=== PATIENT | male | born 1965 | race Caucasian/White ===

== ENCOUNTER → 2019-03-24 12:33 | Outpatient (BNVA) | payer BC, SELFPAY | PROVIDERS: Family Provider Internal Medicine; PCP Internal Medicine; Visit Provider Nurse Practitioner Psychiatric/Mental Health | DX: F33.1 Major depressive disorder, recurrent, moderate (principal); F41.0 Panic disorder [episodic paroxysmal anxiety]; M79.7 Fibromyalgia; F17.220 Nicotine dependence, chewing tobacco, uncomplicated | CPT/HCPCS: 99213 ==

== ENCOUNTER → 2019-05-19 14:34 | Outpatient (BNVA) | payer BC, SELFPAY | PROVIDERS: Family Provider Internal Medicine; PCP Internal Medicine; Visit Provider Nurse Practitioner Psychiatric/Mental Health | DX: F33.1 Major depressive disorder, recurrent, moderate (principal); F41.0 Panic disorder [episodic paroxysmal anxiety]; M79.7 Fibromyalgia; F17.220 Nicotine dependence, chewing tobacco, uncomplicated | CPT/HCPCS: 99213 ==

== ENCOUNTER → 2019-07-14 08:24 | Outpatient (BNVA) | payer MEDICARE, BC, SELFPAY | PROVIDERS: Family Provider Internal Medicine; PCP Internal Medicine; Visit Provider Nurse Practitioner Psychiatric/Mental Health | DX: F33.1 Major depressive disorder, recurrent, moderate (principal); F41.0 Panic disorder [episodic paroxysmal anxiety]; M79.7 Fibromyalgia; F17.220 Nicotine dependence, chewing tobacco, uncomplicated; F33.2 Major depressive disorder, recurrent severe without psychotic features | CPT/HCPCS: 99213 ==

== ENCOUNTER → 2019-08-07 07:33 | Outpatient (BNVA) | payer MEDICARE, BC, SELFPAY | PROVIDERS: Family Provider Internal Medicine; PCP Internal Medicine; Visit Provider Nurse Practitioner Psychiatric/Mental Health | DX: F33.1 Major depressive disorder, recurrent, moderate (principal); F41.0 Panic disorder [episodic paroxysmal anxiety]; M79.7 Fibromyalgia; F17.220 Nicotine dependence, chewing tobacco, uncomplicated; F33.2 Major depressive disorder, recurrent severe without psychotic features | CPT/HCPCS: 99213 ==

== ENCOUNTER → 2019-08-26 07:31 | Outpatient (BNVA) | payer MEDICARE, BC, SELFPAY | PROVIDERS: Family Provider Internal Medicine; PCP Internal Medicine; Visit Provider Nurse Practitioner Psychiatric/Mental Health | DX: F33.1 Major depressive disorder, recurrent, moderate (principal); F41.0 Panic disorder [episodic paroxysmal anxiety]; M79.7 Fibromyalgia; F17.220 Nicotine dependence, chewing tobacco, uncomplicated; F41.1 Generalized anxiety disorder | CPT/HCPCS: 80053; 80061; 83036; 83721; 85025; 99214 ==

== ENCOUNTER → 2019-09-09 07:41 | Outpatient (BNVA) | payer MEDICARE, BC, SELFPAY | PROVIDERS: Family Provider Internal Medicine; PCP Internal Medicine; Visit Provider Nurse Practitioner Psychiatric/Mental Health | DX: F33.1 Major depressive disorder, recurrent, moderate (principal); F41.0 Panic disorder [episodic paroxysmal anxiety]; M79.7 Fibromyalgia; F17.220 Nicotine dependence, chewing tobacco, uncomplicated | CPT/HCPCS: 99214 ==

== ENCOUNTER → 2019-10-07 15:07 | Outpatient (BNVA) | payer MEDICARE, BC, SELFPAY | PROVIDERS: Family Provider Internal Medicine; PCP Internal Medicine; Visit Provider Nurse Practitioner Psychiatric/Mental Health | DX: F33.1 Major depressive disorder, recurrent, moderate (principal); F41.0 Panic disorder [episodic paroxysmal anxiety]; M79.7 Fibromyalgia; F17.220 Nicotine dependence, chewing tobacco, uncomplicated | CPT/HCPCS: 99214 ==

== ENCOUNTER → 2019-11-06 08:15 | Outpatient (BNVA) | payer MEDICARE, BC, SELFPAY | PROVIDERS: Family Provider Internal Medicine; PCP Internal Medicine; Visit Provider Nurse Practitioner Psychiatric/Mental Health | DX: F33.1 Major depressive disorder, recurrent, moderate (principal); F41.0 Panic disorder [episodic paroxysmal anxiety]; M79.7 Fibromyalgia; F17.220 Nicotine dependence, chewing tobacco, uncomplicated | CPT/HCPCS: 99214 ==

== ENCOUNTER → 2019-12-04 13:00 | Outpatient (BNVA) | payer MEDICARE, BC, SELFPAY | PROVIDERS: Family Provider Internal Medicine; PCP Internal Medicine; Visit Provider Nurse Practitioner Psychiatric/Mental Health | DX: F33.1 Major depressive disorder, recurrent, moderate (principal); F41.0 Panic disorder [episodic paroxysmal anxiety]; M79.7 Fibromyalgia; F17.220 Nicotine dependence, chewing tobacco, uncomplicated | CPT/HCPCS: 99214 ==

== ENCOUNTER → 2019-12-31 08:09 | Outpatient (BNVA) | payer MEDICARE, BC, SELFPAY | PROVIDERS: Family Provider Internal Medicine; PCP Internal Medicine; Visit Provider Nurse Practitioner Psychiatric/Mental Health | DX: F33.1 Major depressive disorder, recurrent, moderate (principal); F41.0 Panic disorder [episodic paroxysmal anxiety]; M79.7 Fibromyalgia; F17.220 Nicotine dependence, chewing tobacco, uncomplicated | CPT/HCPCS: 99214 ==

== ENCOUNTER → 2020-01-13 08:36 | Outpatient (BNVA) | payer MEDICARE, BC, SELFPAY | PROVIDERS: Family Provider Internal Medicine; PCP Internal Medicine; Visit Provider Nurse Practitioner Psychiatric/Mental Health | DX: F33.1 Major depressive disorder, recurrent, moderate (principal); F41.0 Panic disorder [episodic paroxysmal anxiety]; M79.7 Fibromyalgia; F17.220 Nicotine dependence, chewing tobacco, uncomplicated | CPT/HCPCS: 99214 ==

== ENCOUNTER → 2020-02-10 07:36 | Outpatient (BNVA) | payer MEDICARE, BC, SELFPAY | PROVIDERS: Family Provider Internal Medicine; PCP Internal Medicine; Visit Provider Nurse Practitioner Psychiatric/Mental Health | DX: F33.1 Major depressive disorder, recurrent, moderate (principal); F41.0 Panic disorder [episodic paroxysmal anxiety]; M79.7 Fibromyalgia; F17.220 Nicotine dependence, chewing tobacco, uncomplicated; F33.2 Major depressive disorder, recurrent severe without psychotic features | CPT/HCPCS: 99213 ==

== ENCOUNTER → 2020-03-21 08:47 | Outpatient (BNVA) | payer MEDICARE, BC, SELFPAY | PROVIDERS: Family Provider Internal Medicine; PCP Internal Medicine; Visit Provider Nurse Practitioner Psychiatric/Mental Health | DX: F33.1 Major depressive disorder, recurrent, moderate (principal); F41.0 Panic disorder [episodic paroxysmal anxiety]; M79.7 Fibromyalgia; F17.220 Nicotine dependence, chewing tobacco, uncomplicated | CPT/HCPCS: 99213 ==

== ENCOUNTER → 2020-05-04 08:40 | Outpatient (BNVA) | payer MEDICARE, BC, SELFPAY | PROVIDERS: Family Provider Internal Medicine; PCP Internal Medicine; Visit Provider Nurse Practitioner Psychiatric/Mental Health | DX: F33.1 Major depressive disorder, recurrent, moderate (principal); F41.0 Panic disorder [episodic paroxysmal anxiety]; M79.7 Fibromyalgia; F17.220 Nicotine dependence, chewing tobacco, uncomplicated; F41.1 Generalized anxiety disorder | CPT/HCPCS: 99214 ==

== ENCOUNTER → 2020-05-30 11:35 | Outpatient (BNVA) | payer MEDICARE, BC, SELFPAY | PROVIDERS: Family Provider Internal Medicine; PCP Internal Medicine; Visit Provider Nurse Practitioner Psychiatric/Mental Health | DX: F33.1 Major depressive disorder, recurrent, moderate (principal); F41.0 Panic disorder [episodic paroxysmal anxiety]; M79.7 Fibromyalgia; F17.220 Nicotine dependence, chewing tobacco, uncomplicated | CPT/HCPCS: 99214 ==

== ENCOUNTER → 2020-07-11 09:51 | Outpatient (BNVA) | payer MEDICARE, BC, SELFPAY | PROVIDERS: Family Provider Internal Medicine; PCP Internal Medicine; Visit Provider Nurse Practitioner Psychiatric/Mental Health | DX: F33.1 Major depressive disorder, recurrent, moderate (principal); F41.0 Panic disorder [episodic paroxysmal anxiety]; M79.7 Fibromyalgia; F17.220 Nicotine dependence, chewing tobacco, uncomplicated | CPT/HCPCS: 99214 ==

== ENCOUNTER → 2020-08-22 10:32 | Outpatient (BNVA) | payer MEDICARE, BC, SELFPAY | PROVIDERS: Family Provider Internal Medicine; PCP Internal Medicine; Visit Provider Nurse Practitioner Psychiatric/Mental Health | DX: F33.1 Major depressive disorder, recurrent, moderate (principal); F41.0 Panic disorder [episodic paroxysmal anxiety]; M79.7 Fibromyalgia; F17.220 Nicotine dependence, chewing tobacco, uncomplicated | CPT/HCPCS: 99214 ==

== ENCOUNTER → 2020-10-17 09:40 | Outpatient (BNVA) | payer MEDICARE, BC, SELFPAY | PROVIDERS: Family Provider Internal Medicine; PCP Internal Medicine; Visit Provider Nurse Practitioner Psychiatric/Mental Health | DX: F33.1 Major depressive disorder, recurrent, moderate (principal); F41.0 Panic disorder [episodic paroxysmal anxiety]; F17.220 Nicotine dependence, chewing tobacco, uncomplicated; M79.7 Fibromyalgia | CPT/HCPCS: 99214 ==

== ENCOUNTER → 2020-11-28 08:49 | Outpatient (BNVA) | payer MEDICARE, BC, SELFPAY | PROVIDERS: Family Provider Internal Medicine; PCP Internal Medicine; Visit Provider Nurse Practitioner Psychiatric/Mental Health | DX: F33.1 Major depressive disorder, recurrent, moderate (principal); F41.0 Panic disorder [episodic paroxysmal anxiety]; F17.220 Nicotine dependence, chewing tobacco, uncomplicated; M79.7 Fibromyalgia | CPT/HCPCS: 99214 ==

== ENCOUNTER → 2020-12-08 13:39 | Outpatient (BNVA) | payer MEDICARE, BC, SELFPAY | PROVIDERS: Family Provider Internal Medicine; PCP Internal Medicine; Visit Provider Nurse Practitioner Psychiatric/Mental Health | DX: F41.0 Panic disorder [episodic paroxysmal anxiety]; M79.7 Fibromyalgia; F17.220 Nicotine dependence, chewing tobacco, uncomplicated; F33.1 Major depressive disorder, recurrent, moderate | CPT/HCPCS: 99214 ==

== ENCOUNTER → 2020-12-15 12:23 | Outpatient (BNVA) | payer MEDICARE, BC, SELFPAY | PROVIDERS: Family Provider Internal Medicine; PCP Internal Medicine; Visit Provider Nurse Practitioner Psychiatric/Mental Health | DX: F33.1 Major depressive disorder, recurrent, moderate (principal); F41.0 Panic disorder [episodic paroxysmal anxiety]; M79.7 Fibromyalgia; F17.220 Nicotine dependence, chewing tobacco, uncomplicated | CPT/HCPCS: 99214 ==

== ENCOUNTER → 2020-12-27 09:50 | Outpatient (BNVA) | payer MEDICARE, BC, SELFPAY | PROVIDERS: Family Provider Internal Medicine; PCP Internal Medicine; Visit Provider Nurse Practitioner Psychiatric/Mental Health | DX: F33.1 Major depressive disorder, recurrent, moderate (principal); F41.0 Panic disorder [episodic paroxysmal anxiety]; M79.7 Fibromyalgia; F17.220 Nicotine dependence, chewing tobacco, uncomplicated | CPT/HCPCS: 99214 ==

== ENCOUNTER → 2021-01-10 09:41 | Outpatient (BNVA) | payer MEDICARE, BC, SELFPAY | PROVIDERS: Family Provider Internal Medicine; PCP Internal Medicine; Visit Provider Nurse Practitioner Psychiatric/Mental Health | DX: F33.1 Major depressive disorder, recurrent, moderate (principal); F41.0 Panic disorder [episodic paroxysmal anxiety]; F17.220 Nicotine dependence, chewing tobacco, uncomplicated; M79.7 Fibromyalgia | CPT/HCPCS: 99214 ==

== ENCOUNTER → 2021-02-07 08:47 | Outpatient (BNVA) | payer MEDICARE, BC, SELFPAY | PROVIDERS: Family Provider Internal Medicine; PCP Internal Medicine; Visit Provider Nurse Practitioner Psychiatric/Mental Health | DX: F33.1 Major depressive disorder, recurrent, moderate (principal); F41.0 Panic disorder [episodic paroxysmal anxiety]; M79.7 Fibromyalgia; F17.220 Nicotine dependence, chewing tobacco, uncomplicated | CPT/HCPCS: 99214 ==

== ENCOUNTER → 2021-04-04 07:24 | Outpatient (BNVA) | payer MEDICARE, BC, SELFPAY | PROVIDERS: Family Provider Internal Medicine; PCP Internal Medicine; Visit Provider Nurse Practitioner Psychiatric/Mental Health | DX: F33.1 Major depressive disorder, recurrent, moderate (principal); F41.0 Panic disorder [episodic paroxysmal anxiety]; F17.220 Nicotine dependence, chewing tobacco, uncomplicated; M79.7 Fibromyalgia | CPT/HCPCS: 99214 ==

== ENCOUNTER → 2021-05-02 10:04 | Outpatient (BNVA) | payer MEDICARE, BC, SELFPAY | PROVIDERS: Family Provider Internal Medicine; PCP Internal Medicine; Visit Provider Nurse Practitioner Psychiatric/Mental Health | DX: F33.1 Major depressive disorder, recurrent, moderate (principal); F41.0 Panic disorder [episodic paroxysmal anxiety]; M79.7 Fibromyalgia; F17.220 Nicotine dependence, chewing tobacco, uncomplicated | CPT/HCPCS: 99214 ==

== ENCOUNTER → 2021-06-14 08:40 | Outpatient (BNVA) | payer MEDICARE, BC, SELFPAY | PROVIDERS: Family Provider Internal Medicine; PCP Internal Medicine; Visit Provider Nurse Practitioner Psychiatric/Mental Health | DX: F33.1 Major depressive disorder, recurrent, moderate (principal); F41.0 Panic disorder [episodic paroxysmal anxiety]; F17.220 Nicotine dependence, chewing tobacco, uncomplicated; M79.7 Fibromyalgia | CPT/HCPCS: 99214 ==

== ENCOUNTER → 2021-08-02 09:08 | Outpatient (BNVA) | payer MEDICARE, BC, SELFPAY | PROVIDERS: Family Provider Internal Medicine; PCP Internal Medicine; Visit Provider Nurse Practitioner Psychiatric/Mental Health | DX: F33.1 Major depressive disorder, recurrent, moderate (principal); F41.0 Panic disorder [episodic paroxysmal anxiety]; M79.7 Fibromyalgia; F17.220 Nicotine dependence, chewing tobacco, uncomplicated | CPT/HCPCS: 99214 ==

== ENCOUNTER → 2021-08-30 13:31 | Outpatient (BNVA) | payer MEDICARE, BC, SELFPAY | PROVIDERS: Family Provider Internal Medicine; PCP Internal Medicine; Referring Provider Family Medicine; Visit Provider Internal Medicine | DX: E11.42 Type 2 diabetes mellitus with diabetic polyneuropathy (principal); E11.59 Type 2 diabetes mellitus with other circulatory complications; E78.2 Mixed hyperlipidemia; I25.10 Atherosclerotic heart disease of native coronary artery without angina pectoris; R80.9 Proteinuria, unspecified; Z87.19 Personal history of other diseases of the digestive system; Z79.84 Long term (current) use of oral hypoglycemic drugs; Z79.4 Long term (current) use of insulin | CPT/HCPCS: 99204 ==

== ENCOUNTER → 2021-10-26 08:19 | Outpatient (BNVA) | payer MEDICARE, BC, SELFPAY | PROVIDERS: Family Provider Internal Medicine; PCP Internal Medicine; Visit Provider Internal Medicine | DX: E11.42 Type 2 diabetes mellitus with diabetic polyneuropathy (principal) | CPT/HCPCS: 80053; 80061; 83036; 83721 ==

== ENCOUNTER → 2021-11-27 10:40 | Outpatient (BNVA) | payer MEDICARE, BC, SELFPAY | PROVIDERS: Family Provider Internal Medicine; PCP Family Medicine; Visit Provider Internal Medicine | DX: E11.42 Type 2 diabetes mellitus with diabetic polyneuropathy (principal); E11.59 Type 2 diabetes mellitus with other circulatory complications; E78.2 Mixed hyperlipidemia; I25.10 Atherosclerotic heart disease of native coronary artery without angina pectoris; R80.9 Proteinuria, unspecified; Z79.84 Long term (current) use of oral hypoglycemic drugs; Z79.4 Long term (current) use of insulin | CPT/HCPCS: 99214 ==

== ENCOUNTER → 2021-12-20 10:42 | Outpatient (BNVA) | payer MEDICARE, SELFPAY | PROVIDERS: Family Provider Internal Medicine; PCP Nurse Practitioner Family; Visit Provider Nurse Practitioner Family | DX: E11.42 Type 2 diabetes mellitus with diabetic polyneuropathy (principal); K85.90 Acute pancreatitis without necrosis or infection, unspecified; K86.1 Other chronic pancreatitis; H83.3X9 Noise effects on inner ear, unspecified ear; M54.9 Dorsalgia, unspecified; G89.29 Other chronic pain; E11.9 Type 2 diabetes mellitus without complications; E78.2 Mixed hyperlipidemia; F41.0 Panic disorder [episodic paroxysmal anxiety]; F33.1 Major depressive disorder, recurrent, moderate | CPT/HCPCS: 80053; 82150; 83036; 83690 ==

== ENCOUNTER → 2022-01-15 09:19 | Outpatient (BNVA) | payer MEDICARE, BC, SELFPAY | PROVIDERS: Family Provider Internal Medicine; PCP Nurse Practitioner Family; Visit Provider Nurse Practitioner Family | DX: N40.0 Benign prostatic hyperplasia without lower urinary tract symptoms (principal); N48.1 Balanitis; N52.9 Male erectile dysfunction, unspecified | CPT/HCPCS: 36415; 51741; 51798; 84153; 99203 ==

== ENCOUNTER → 2022-01-18 07:33 | Outpatient (BNVA) | payer MEDICARE, BC, SELFPAY | PROVIDERS: Family Provider Internal Medicine; PCP Nurse Practitioner Family; Visit Provider Nurse Practitioner Family | DX: N40.0 Benign prostatic hyperplasia without lower urinary tract symptoms (principal); N48.1 Balanitis; N52.9 Male erectile dysfunction, unspecified | CPT/HCPCS: 81003 ==

== ENCOUNTER → 2022-01-29 08:19 | Outpatient (BNVA) | payer MEDICARE, BC, SELFPAY | PROVIDERS: Family Provider Internal Medicine; PCP Nurse Practitioner Family; Visit Provider Nurse Practitioner Family | DX: E11.42 Type 2 diabetes mellitus with diabetic polyneuropathy (principal); E78.2 Mixed hyperlipidemia; E11.59 Type 2 diabetes mellitus with other circulatory complications; I25.10 Atherosclerotic heart disease of native coronary artery without angina pectoris; M79.7 Fibromyalgia | CPT/HCPCS: 80053; 80061; 83036; 83721 ==

== ENCOUNTER → 2022-02-28 10:56 | Outpatient (BNVA) | payer MEDICARE, BC, SELFPAY | PROVIDERS: Family Provider Internal Medicine; PCP Nurse Practitioner Family; Visit Provider Internal Medicine | DX: E11.59 Type 2 diabetes mellitus with other circulatory complications (principal); E11.42 Type 2 diabetes mellitus with diabetic polyneuropathy; I25.10 Atherosclerotic heart disease of native coronary artery without angina pectoris; E78.1 Pure hyperglyceridemia; E78.2 Mixed hyperlipidemia; R60.9 Edema, unspecified; R80.9 Proteinuria, unspecified; Z79.84 Long term (current) use of oral hypoglycemic drugs; Z79.4 Long term (current) use of insulin | CPT/HCPCS: 99215 ==

== ENCOUNTER 2022-03-19 16:20 | Outpatient (CLI) | payer MEDICARE, SELFPAY ==
[2022-03-19 16:53] LABS: Basophils % 0.3 %; Eosinophils # 0.1 10^3/uL (0.0-0.8); Eosinophils % 1.2 %; Hematocrit 42.3 % (42.0-52.0); Lymphocytes # 2.8 10^3/uL (0.8-4.8); Lymphocytes % 27.3 %; Mean Corpuscular HGB Conc 33.1 g/dL (30.0-36.0); Mean Corpuscular Hemoglobin 28.5 pg (28.0-34.0); Mean Platelet Volume 10.8 fL (7.4-10.4); Monocytes # 0.8 10^3/uL (0.2-0.9); Monocytes % 7.3 %; Neutrophils # 6.63 10^3/uL (1.8-7.7); Neutrophils % 63.6 %; Nucleated Red Blood Cells % 0 %; Platelet Count 261 10^3/cmm (130-400); Red Blood Count 4.92 10^6/uL (4.1-5.3); Red Cell Distribution Width 15.2 % (12.1-15.1); White Blood Count 10.4 10^3/uL (4.0-10.0)
[2022-03-19 18:00] LABS: Alanine Aminotransferase 32 U/L (0-41); Albumin Level 4.2 g/dL (3.5-5.2); Alkaline Phosphatase 93 U/L (40-130); Anion Gap 15.9 (5-19); Aspartate Amino Transferase 20 U/L (0-40); Blood Urea Nitrogen 18 mg/dL (6-20); Calcium 9.9 mg/dL (8.5-10.5); Carbon Dioxide 24 mmol/L (22-29); Chloride 99 mmol/L (98-107); Globulin 3.2 g/dL (1.3-4.6); Glomerular Filtration Rate 77.6 mL/min (90-130); Glucose 238 mg/dL (65-115); Osmolality Calculated 290 mOsm/kg (285-295); Potassium 3.9 mmol/L (3.5-5.1); Sodium 135 mmol/L (136-145); Total Bilirubin 0.3 mg/dL (0.15-1.2); Total Protein 7.4 g/dL (6.6-8.7)
[2022-03-19 19:30] LABS: HIV 1 & 2 Antibody Non-Reactive (Non-Reactiv); HIV 1 & 2 Antigen Non-Reactive (Non-Reactiv)
[2022-03-19 22:05] LABS: Hepatitis A Antibody IgM Non-Reactive (Nonreactive); Hepatitis B Core AB, Total Non-Reactive (Nonreactive); Hepatitis B Surface AB 3.5 (11.5-1000); Hepatitis B Surface Antigen Non-Reactive (Nonreactive); Hepatitis C Virus Antibody Non-Reactive (Nonreactive)
[2022-03-21 12:02] LABS: Quantiferon Mitogen >10.00 IU/mL; Quantiferon Nil 0.02 IU/mL; Quantiferon Plus TB1 0.01 IU/mL; Quantiferon Plus TB2 0.01 IU/mL; Quantiferon TB Gold NEGATIVE (NEGATIVE)
== END 2022-03-19 16:21 | disposition home or self-care (01) ==
LOC: LAB 16:24
PROVIDERS: PCP Nurse Practitioner Family; Referring Provider Internal Medicine; Visit Provider Nurse Practitioner Family
DX: Z79.899 Other long term (current) drug therapy (principal)
CPT/HCPCS: 80053; 85025; 86480; 86705; 86706; 86709; 86803; 87340; 87806

== ENCOUNTER → 2022-03-22 14:58 | Outpatient (BNVA) | payer MEDICARE, SELFPAY | PROVIDERS: PCP Nurse Practitioner Family; Visit Provider Urology | DX: N40.0 Benign prostatic hyperplasia without lower urinary tract symptoms (principal); N52.9 Male erectile dysfunction, unspecified; N48.1 Balanitis | CPT/HCPCS: 81003; 99214 ==

== ENCOUNTER 2022-04-18 06:08 | Outpatient (CLI) | payer MEDICARE, SELFPAY ==
--- NOTE | 2022-04-18 06:15 | USCV_ITS ---
Noble Dumont Age: 57 Gender: M : 1965 Exam Date: 04/18/2022 06:20 Ordering Phys: Gilma Pedraza MD Technologist: KOFFI [place] [facility] [place]ication: ASSESS FOR HEART FAILURE, HISTORY OF CABG BP: 139 / 84 HR: 72 Rhythm: Sinus Technical Quality: Poor because of body habitus, Technically difficult study MEASUREMENTS (Male / Female) Normal Values 2D ECHO LVOT Diameter 2.0 cm LV Ejection Fraction MOD 2C 52.7 % LV Ejection Fraction 2C AL 57.0 % LA Diameter 3.8 cm LA Width 2.9 cm LA Height 5.5 cm RA Width 3.7 cm RA Height 4.8 cm Aorta at Sinotubular Diameter 2.9 cm IVC Diameter 2.1 cm M-MODE Aortic Annulus Diameter 3.5 cm LA Ao Ratio MM 1.1 MV E Point Septal Separation 0.5 cm DOPPLER Right Atrial Pressure 3.0 mmHg FINDINGS Left Ventricle Normal left ventricular cavity size. Grossly normal left ventricular systolic function. Left ventricular ejection fraction is estimated at 55 %. Although no diagnostic regional wall motion abnormality could be identified, this possibility cannot be completely excluded. Right Ventricle Right ventricle not well visualized. Right Atrium Mildly increased right atrial size. Left Atrium Normal left atrial size. Mitral Valve Structurally normal mitral valve. Aortic Valve Probably trileaflet aortic valve. Tricuspid Valve Structurally normal tricuspid valve. Trace tricuspid valve regurgitation. Pulmonic Valve Pulmonic valve not well visualized. Pericardium No pericardial effusion. Aorta Normal sized aortic root. IVC Normal IVC dimension with >50% respiratory change of the inferior vena cava. CONCLUSIONS 1. This is a technically difficult study. 2. Normal left ventricular cavity size. Grossly normal left ventricular systolic function. Left ventricular ejection fraction is estimated at 55 %. Although no diagnostic regional wall motion abnormality could be identified, this possibility cannot be completely excluded. 3. Repeat study with echo contrast is recommended. Wanda Staples MD (Electronically Signed) Final Date: 24 April 2022 06:19 S
== END 2022-04-18 06:09 | disposition home or self-care (01) ==
LOC: RAD 06:10
PROVIDERS: PCP Nurse Practitioner Family; Visit Provider Internal Medicine
DX: E11.59 Type 2 diabetes mellitus with other circulatory complications (principal); I25.10 Atherosclerotic heart disease of native coronary artery without angina pectoris; R60.9 Edema, unspecified
CPT/HCPCS: 93308

== ENCOUNTER → 2022-05-11 07:15 | Outpatient (BNVA) | payer MEDICARE, SELFPAY | PROVIDERS: PCP Nurse Practitioner Family; Visit Provider Internal Medicine | DX: E11.319 Type 2 diabetes mellitus with unspecified diabetic retinopathy without macular edema (principal); E11.59 Type 2 diabetes mellitus with other circulatory complications; E11.42 Type 2 diabetes mellitus with diabetic polyneuropathy; I25.10 Atherosclerotic heart disease of native coronary artery without angina pectoris; R60.9 Edema, unspecified; Z79.4 Long term (current) use of insulin; Z79.84 Long term (current) use of oral hypoglycemic drugs | CPT/HCPCS: 36415; 80053; 80061; 82044; 83036; 83721; 99214 ==

== ENCOUNTER → 2022-10-16 08:46 | Outpatient (BNVA) | payer MEDICARE, SELFPAY | PROVIDERS: PCP Nurse Practitioner Family; Referring Provider Internal Medicine; Visit Provider Internal Medicine | DX: M79.7 Fibromyalgia (principal); R10.9 Unspecified abdominal pain; E11.42 Type 2 diabetes mellitus with diabetic polyneuropathy; E11.59 Type 2 diabetes mellitus with other circulatory complications; E11.9 Type 2 diabetes mellitus without complications; E78.1 Pure hyperglyceridemia; I25.10 Atherosclerotic heart disease of native coronary artery without angina pectoris; R60.9 Edema, unspecified; R80.9 Proteinuria, unspecified; W57.XXXA Bitten or stung by nonvenomous insect and other nonvenomous arthropods, initial encounter | CPT/HCPCS: 80053; 80061; 82043; 82306; 82607; 83036; 83690; 83721; 83735; 84443; 85025; 86618; 86666; 86757 ==

== ENCOUNTER 2022-11-02 06:59 | Outpatient (CLI) | payer MEDICARE, SELFPAY ==
[2022-11-02] MEDS: iohexol 350 mg/mL 500 mL Btl (per mL) IV (07:57)
[2022-11-02] MEDS: iohexol 350 mg/mL 500 mL Btl (per mL) PO (07:57)
--- NOTE | 2022-11-02 08:30 | CT_ITS ---
WS: [id number] CT ABDOMEN PELVIS TECHNIQUE: Contrast-enhanced CT of the abdomen and pelvis with coronal and sagittal reformatted image s. CLINICAL INFORMATION: R10.32 - Left lower quadrant pain COMPARISON: 2019 DLP: 927.[address] scans at [facility] use at least one of these dose optimization techniques: automated e xposure control; mA and/or kV adjustment per patient size (includes targeted exams where dose is matc hed to clinical indication); or iterative reconstruction. FINDINGS: Lung bases are well aerated. Hepatomegaly. Diffuse fatty infiltration liver. Cholecystectomy clips. N ormal spleen. Normal GE junction. Normal portal vein and splenic vein. Normal spleen. Pancreas appears normal. Celiac and SMA are patent. LEFT adrenal adenoma measuring 2.5 cm is unchange d. Normal RIGHT adrenal gland. No hydronephrosis in either kidney. Bilateral renal cysts the largest on the LEFT lower pole measuring 2.7 cm. Normal caliber abdominal aorta. A few sigmoid diverticuli. No evidence of acute diverticulitis. Normal appendix in the RIGHT lower qu adrant. Disc osteophyte protrusion L4-5 with moderate central canal stenosis unchanged. IMPRESSION: 1. A few sigmoid diverticuli. No evidence of acute diverticulitis. 2. Hepatomegaly diffuse fatty filtration. 3. Prior cholecystectomy. 4. Stable LEFT adrenal adenoma. 5. A few incidental renal cysts described above. 6. Disc osteophyte protrusion L4-5 with moderate central canal stenosis unchanged. 7. No other acute findings.
== END 2022-11-02 07:00 | disposition home or self-care (01) ==
LOC: RAD 07:00
PROVIDERS: PCP Nurse Practitioner Family; Visit Provider Nurse Practitioner Family
DX: R10.32 Left lower quadrant pain (principal); K57.30 Diverticulosis of large intestine without perforation or abscess without bleeding; K76.0 Fatty (change of) liver, not elsewhere classified; Z90.49 Acquired absence of other specified parts of digestive tract; N28.1 Cyst of kidney, acquired; M51.26 Other intervertebral disc displacement, lumbar region
CPT/HCPCS: 74177; Q9967

== ENCOUNTER → 2022-11-08 07:36 | Outpatient (BNVA) | payer MEDICARE, SELFPAY | PROVIDERS: PCP Nurse Practitioner Family; Visit Provider Internal Medicine | DX: E11.59 Type 2 diabetes mellitus with other circulatory complications; I25.10 Atherosclerotic heart disease of native coronary artery without angina pectoris; R60.9 Edema, unspecified; E11.42 Type 2 diabetes mellitus with diabetic polyneuropathy; R80.9 Proteinuria, unspecified; E78.1 Pure hyperglyceridemia; K21.9 Gastro-esophageal reflux disease without esophagitis; R10.9 Unspecified abdominal pain; R53.83 Other fatigue; E27.8 Other specified disorders of adrenal gland; N52.9 Male erectile dysfunction, unspecified; Z79.4 Long term (current) use of insulin; Z79.84 Long term (current) use of oral hypoglycemic drugs | CPT/HCPCS: 99215 ==

== ENCOUNTER → 2023-01-16 12:27 | Outpatient (BNVA) | payer MEDICARE, SELFPAY | PROVIDERS: PCP Nurse Practitioner Family; Visit Provider Family Medicine | DX: E11.42 Type 2 diabetes mellitus with diabetic polyneuropathy (principal); E11.59 Type 2 diabetes mellitus with other circulatory complications; E78.1 Pure hyperglyceridemia; I25.10 Atherosclerotic heart disease of native coronary artery without angina pectoris; K21.9 Gastro-esophageal reflux disease without esophagitis; R10.9 Unspecified abdominal pain; R53.83 Other fatigue; R60.9 Edema, unspecified; R80.9 Proteinuria, unspecified | CPT/HCPCS: 80053; 80061; 82043; 82088; 83036; 84403 ==

== ENCOUNTER → 2023-01-18 11:58 | Outpatient (BNVA) | payer MEDICARE, SELFPAY | PROVIDERS: PCP Nurse Practitioner Family; Visit Provider Family Medicine | DX: E11.42 Type 2 diabetes mellitus with diabetic polyneuropathy (principal); E11.59 Type 2 diabetes mellitus with other circulatory complications; E78.1 Pure hyperglyceridemia; I25.10 Atherosclerotic heart disease of native coronary artery without angina pectoris; K21.9 Gastro-esophageal reflux disease without esophagitis; R10.9 Unspecified abdominal pain; R53.83 Other fatigue; R60.9 Edema, unspecified; R80.9 Proteinuria, unspecified | CPT/HCPCS: 82384; 82530; 82570 ==

== ENCOUNTER → 2023-05-17 11:15 | Outpatient (BNVA) | payer MEDICARE, SELFPAY | PROVIDERS: PCP Nurse Practitioner Family; Visit Provider Nurse Practitioner Family | DX: E11.42 Type 2 diabetes mellitus with diabetic polyneuropathy (principal); E55.9 Vitamin D deficiency, unspecified; Z79.899 Other long term (current) drug therapy | CPT/HCPCS: 80053; 80061; 81000; 82043; 82306; 82607; 83036; 83721; 84439; 84443; 85025 ==

== ENCOUNTER → 2023-07-03 16:19 | Outpatient (BNVA) | payer MEDICARE, SELFPAY | PROVIDERS: PCP Nurse Practitioner Family; Visit Provider Nurse Practitioner Family | DX: E11.42 Type 2 diabetes mellitus with diabetic polyneuropathy (principal); E11.9 Type 2 diabetes mellitus without complications; R10.31 Right lower quadrant pain; I10 Essential (primary) hypertension | CPT/HCPCS: 83721 ==

== ENCOUNTER 2023-07-11 14:49 | Outpatient (CLI) | payer MEDICARE, SELFPAY ==
--- NOTE | 2023-07-11 15:30 | USR_ITS ---
PROCEDURE INFORMATION: Exam: US Right Non-Vascular Joint or Other Extremity Structure Exam date and time: 07/11/2023 3:01 PM Age: 58 years old Clinical indication: Mass or lump; Other: Right inguinal; Additional info: R10.31 - right lower quadrant pain TECHNIQUE: Imaging protocol: Right US joint or other nonvascular extremity structure or structures. Real-time ultrasound with image documentation. Limited study. Exam focused on the lower extremity in the region of clinical interest. COMPARISON: CT abdomen pelvis w con* [id number] 11/02/2022 8:42 AM FINDINGS: Soft tissues: Examination of the right inguinal region demonstrates prominent subcutaneous fat. No soft tissue mass or fluid collection noted. No obvious hernia. US/US soft tissue/extremity [id number] IMPRESSION: Prominent subcutaneous fat
== END 2023-07-11 14:50 | disposition home or self-care (01) ==
LOC: RAD 14:49
PROVIDERS: PCP Nurse Practitioner Family; Visit Provider Nurse Practitioner Family
DX: R10.31 Right lower quadrant pain (principal)
CPT/HCPCS: 76882; 80053; 80061; 83036; 83880; 85025

== ENCOUNTER → 2023-10-21 09:10 | Outpatient (BNVA) | payer MEDICARE, SELFPAY | PROVIDERS: PCP Nurse Practitioner Family; Visit Provider Nurse Practitioner Family | DX: E11.9 Type 2 diabetes mellitus without complications (principal) | CPT/HCPCS: 80053; 80061; 83036; 85025 ==

== ENCOUNTER → 2023-11-26 10:11 | Outpatient (BNVA) | payer MEDICARE, SELFPAY | PROVIDERS: PCP Nurse Practitioner Family; Visit Provider Nurse Practitioner Family | DX: N39.0 Urinary tract infection, site not specified (principal) | CPT/HCPCS: 81000 ==

== ENCOUNTER → 2023-12-03 10:36 | Outpatient (BNVA) | payer MEDICARE, SELFPAY | PROVIDERS: PCP Nurse Practitioner Family; Visit Provider Nurse Practitioner Family | DX: R10.32 Left lower quadrant pain (principal) | CPT/HCPCS: 80053; 81000; 82150; 83690; 85025 ==

== ENCOUNTER → 2024-03-24 08:48 | Outpatient (BNVA) | payer MEDICARE, SELFPAY | PROVIDERS: PCP Nurse Practitioner Family; Visit Provider Nurse Practitioner Family | DX: E11.42 Type 2 diabetes mellitus with diabetic polyneuropathy (principal); M79.7 Fibromyalgia | CPT/HCPCS: 80053; 80061; 82306; 83036; 83721; 85025 ==

== ENCOUNTER → 2024-04-23 09:20 | Outpatient (BNVA) | payer MEDICARE, SELFPAY | PROVIDERS: Family Provider Nurse Practitioner Family; PCP Nurse Practitioner Family; Visit Provider Nurse Practitioner Family | DX: E87.6 Hypokalemia (principal) | CPT/HCPCS: 80048 ==

== ENCOUNTER → 2024-06-01 10:12 | Outpatient (BNVA) | payer MEDICARE, SELFPAY | PROVIDERS: Family Provider Nurse Practitioner Family; PCP Nurse Practitioner Family; Visit Provider Nurse Practitioner Family | DX: J44.1 Chronic obstructive pulmonary disease with (acute) exacerbation (principal) | CPT/HCPCS: 71046; 80053; 85025 ==

== ENCOUNTER 2024-07-16 07:50 | Outpatient (CLI) | payer MEDICARE, SELFPAY ==
[2024-07-16 08:58] LABS: Estmated Average Glucose 223; Hemoglobin A1C 9.4 % (4.0-6.0)
[2024-07-16 08:59] LABS: Alanine Aminotransferase 24 U/L (0-41); Albumin Level 4.2 g/dL (3.5-5.2); Alkaline Phosphatase 122 U/L (40-130); Anion Gap 18.8 (5-19); Aspartate Amino Transferase 14 U/L (0-40); Blood Urea Nitrogen 12 mg/dL (6-20); Calcium 9.7 mg/dL (8.5-10.5); Carbon Dioxide 28 mmol/L (22-29); Chloride 94 mmol/L (98-107); Chol HDL Ratio 9.48 mg/dL (1.0-5.00); Cholesterol 237 mg/dL (0-200); Globulin 3.6 g/dL (1.3-4.6); Glomerular Filtration Rate 99.6 mL/min (90-130); Glucose 420 mg/dL (65-115); HDL Cholesterol 25 mg/dL (60-100); Osmolality Calculated 302 mOsm/kg (285-295); Potassium 3.8 mmol/L (3.5-5.1); Sodium 137 mmol/L (136-145); Total Bilirubin 0.3 mg/dL (0.15-1.2); Total Protein 7.8 g/dL (6.6-8.7)
[2024-07-16 09:05] LABS: Testosterone Total 287.1 ng/dL (193-740)
[2024-07-16 09:18] LABS: Triglycerides 1425 mg/dL (0-150)
[2024-07-16 09:32] LABS: 25 Hydroxy Vitamin D 28 ng/mL (30-100)
[2024-07-16 10:01] LABS: LDL Cholesterol Direct 60 mg/dL (0-100)
== END 2024-07-16 07:51 | disposition home or self-care (01) ==
PROVIDERS: PCP Nurse Practitioner Family; Visit Provider Internal Medicine
DX: M79.7 Fibromyalgia (principal); E11.42 Type 2 diabetes mellitus with diabetic polyneuropathy; E11.9 Type 2 diabetes mellitus without complications; E55.9 Vitamin D deficiency, unspecified; E78.2 Mixed hyperlipidemia; E11.59 Type 2 diabetes mellitus with other circulatory complications; I25.10 Atherosclerotic heart disease of native coronary artery without angina pectoris
CPT/HCPCS: 36415; 80053; 80061; 82088; 82306; 83036; 83721; 84244; 84403

== ENCOUNTER → 2024-07-30 06:58 | Outpatient (BNVA) | payer MEDICARE, SELFPAY | PROVIDERS: Family Provider Nurse Practitioner Family; PCP Nurse Practitioner Family; Visit Provider Internal Medicine | DX: E11.59 Type 2 diabetes mellitus with other circulatory complications (principal); E11.9 Type 2 diabetes mellitus without complications; E78.1 Pure hyperglyceridemia; E27.8 Other specified disorders of adrenal gland; N52.9 Male erectile dysfunction, unspecified | CPT/HCPCS: 99214 ==

== ENCOUNTER → 2024-10-12 09:44 | Outpatient (BNVA) | payer MEDICARE, SELFPAY | PROVIDERS: Family Provider Nurse Practitioner Family; PCP Nurse Practitioner Family; Visit Provider Nurse Practitioner Family | DX: E11.9 Type 2 diabetes mellitus without complications (principal); E55.9 Vitamin D deficiency, unspecified; E11.42 Type 2 diabetes mellitus with diabetic polyneuropathy; E78.2 Mixed hyperlipidemia; E11.59 Type 2 diabetes mellitus with other circulatory complications; I25.10 Atherosclerotic heart disease of native coronary artery without angina pectoris | CPT/HCPCS: 82043; 85025 ==

== ENCOUNTER → 2024-10-13 07:18 | Outpatient (BNVA) | payer MEDICARE, SELFPAY | PROVIDERS: Family Provider Nurse Practitioner Family; PCP Nurse Practitioner Family; Visit Provider Internal Medicine | DX: E11.59 Type 2 diabetes mellitus with other circulatory complications (principal); E27.8 Other specified disorders of adrenal gland; I25.10 Atherosclerotic heart disease of native coronary artery without angina pectoris; R80.9 Proteinuria, unspecified; E78.1 Pure hyperglyceridemia; E27.9 Disorder of adrenal gland, unspecified; N52.9 Male erectile dysfunction, unspecified | CPT/HCPCS: 99214 ==

== ENCOUNTER → 2024-10-19 11:04 | Outpatient (BNVA) | payer MEDICARE, SELFPAY | PROVIDERS: Family Provider Nurse Practitioner Family; PCP Nurse Practitioner Family; Visit Provider Nurse Practitioner Family | DX: E11.9 Type 2 diabetes mellitus without complications (principal) | CPT/HCPCS: 85025 ==

== ENCOUNTER → 2024-10-20 07:00 | Outpatient (BNVA) | payer MEDICARE, SELFPAY | PROVIDERS: Family Provider Nurse Practitioner Family; PCP Nurse Practitioner Family; Visit Provider Podiatrist Foot & Ankle Surgery | DX: E11.42 Type 2 diabetes mellitus with diabetic polyneuropathy (principal); G57.52 Tarsal tunnel syndrome, left lower limb; Z79.4 Long term (current) use of insulin; Z79.84 Long term (current) use of oral hypoglycemic drugs | CPT/HCPCS: 99203 ==

== ENCOUNTER → 2024-11-17 07:57 | Outpatient (BNVA) | payer MEDICARE, SELFPAY | PROVIDERS: Family Provider Nurse Practitioner Family; PCP Nurse Practitioner Family; Visit Provider Podiatrist Foot & Ankle Surgery | DX: E11.9 Type 2 diabetes mellitus without complications (principal); M79.89 Other specified soft tissue disorders | CPT/HCPCS: 36415; 83036; 99213 ==

== ENCOUNTER 2025-02-15 12:36 | Emergency (ER) | payer MEDICARE, SELFPAY ==
--- OUTSIDE RECORDS SUMMARY | 2024-01-04 03:00 | XMS_ITS ---
Author Organization [facility] Address [address] [place] [address] Care Team Providers Care Primary Health Care Nurse Name Role Phone Zenaida Olmedo Primary Care Provider UnaJose Luis Newman Unavailable [phone] eDrrick Seals MD Unavailable Unavailable Migration, Provider Unavailable Unavailable REASON FOR VISIT [facility] [place]counters Encounter Location Date Provider Diagnosis Migrated_Facility 0 0 01/04/2024 Provider Migration Plan Of Treatment Medication Medication Name Sig Start Date Stop Date Notes Gabapentin 300 MG Capsule 1 Capsule Four times a Day Oral 08/20/2016 09/19/2016 traMADol HCl 50 MG Tablet 2 Tablet Three times a Day Oral 08/20/2016 09/19/2016 Gemfibrozil 600 MG Tablet Oral 08/13/2016 09/12/2016 Cyclobenzaprine HCl 5 MG Tablet Oral 08/08/201608/11 Amitriptyline HCl 75 MG Tablet 1 Tablet Every Night Oral 0 08/20/2016 09/19/2016 Progress Notes * Noble BERMEO MDOB: 7 (60 yo M)Acc No.[id number]:01/04/2024 Patient: eDjah Noble ROUSE :1965 A ge:58 Y S ex:Male Address:[place] [address] * Refills Stop Amitriptyline HCl Tablet, 75 MG, Oral, 1 Tablet Every Night Stop Cyclobenzaprine HCl Tablet, 5 MG, Oral Stop Gabapentin Capsule, 300 MG, Oral, 1 Capsule Four times a Day Stop Gemfibrozil Tablet, 600 MG, Oral Stop traMADol HCl Tablet, 50 MG, Oral, 2 Tablet Three times a Day Subjective: * Chief Complaints: * E -Puneet * * Date:
--- OUTSIDE RECORDS SUMMARY | 2024-01-05 03:00 | XMS_ITS ---
Author Organization [facility] Address [address] [place] [address] Care Team Providers Care Exchange Specialist Name Role Phone Zenaida Olmedo Primary Care Provider Jose Luis Baez Unavailable [phone] Derrick Seals MD Unavailable Unavailable Migration, Provider Unavailable Unavailable Allergies Allergen (clinical drug ingredient) Drug/Non Drug Allergy documented on EMR Reaction Allergy Type Onset Date Status Plavix (clopidogrel) Rash Drug Allergy Active REASON FOR VISIT EMR-Puneet Social History Social History Additional Details Category Social Info Options Details Migrated Social History Migrated Social History Alcoholic beverages? - Yes, Currently on disability? - No, Drug or substance abuse? - No, If yes, frequency of alcoholic beverages - Less than 1 drink per week., Marital Status - , Nonprescription drug use? - No, Smoking - No, Smoking status (MU) - Never smoker, Working currently? - Yes Encounters Encounter Location Date Provider Diagnosis Migrated_Facility 0 0 01/05/2024 Provider Migration Plan Of Treatment No Information Progress Notes * Noble MONROE MDOB: 7 (60 yo M)Acc No.[id number]:01/05/2024 Patient: Dejah HORACELON Noble Perry :1965 A ge:58 Y S ex:Male Address:[place] [address] Subjective: * Chief Complaints: * E MR-Puneet * Medical History: Diabetes, F ibromyalgia, H igh blood pressure, * Surgical History: Gallbladder surgery Tonsillectomy * Family History: M igrated Family History: : chronic pain, D iabetes, M ultiple sclerosis. * Social History: M igrated Social History: M igrated Social History: Alcoholic beverages? - Yes, C urrently on disability? - No, D rug or substance abuse? - No, I f yes, frequency of alcoholic beverages - Less than 1 drink per week., M arital Status - , N onprescription drug use? - No, S moking - No, S moking status (MU) - Never smoker, W orking currently? - Yes. * Allergies: Citlaly byrd (clopidogrel): Rash - Allergy * * Date:
--- OUTSIDE RECORDS SUMMARY | 2024-03-30 07:45 | XMS_ITS ---
Author Organization [facility] Address [address] [place] [address] Care Team Providers Care Lathe Hand Name Role Phone JoseShikha Primary Care Provider KATIE Rahman Unavailable [phone] Allergies Allergen (clinical drug ingredient) Drug/Non Drug Allergy documented on EMR Reaction Allergy Type Onset Date Status clopidogrel Plavix hives Drug Allergy Activ e Reason For Referral Reason BPH w/ nocturia Diagnosis 1 Erectile dysfunction due to arterial insufficiency (N52.01) Diagnosis 2 Enlarged prostate wi th lower urinary tract symptoms (N40.1) Referral Organization [facility] Referring Provider First Name KATIE Referring Provider Last Name JUAN PABLO Referring Provider Speciality Other Spec ialties Referred Provider KATIE COSTELLO Referred Provider Specialty Urology General Notes Camilla Junior 03/12 03:41:56 PM >Faxed referral to Urology. Referral Priority Routine REASON FOR VISIT NEW PT - ED Medications Medication SIG (Take, Route, Frequency, Duration) Notes Start Date End Date Status Tadalafil 20 MG 1 tablet as needed O rally as needed; Duration: 30 days 03/30/2024 07/28/2024 Active Ozempic (1 MG/DOSE) 4 MG/3ML as directed Subcutaneous Act michael Insulin Lispro 200 UNIT/ML 80 units in the AM and 80 Units in the PM Subcutaneous Twice Daily Active metFORMIN HCl 500 MG 1 tablet with a radha l in AM and 1 Tablet with a meal in PM Orally Twice Daily Active Cialis 5 MG 1 tablet as needed O rally Once a day Active Flomax 0.4 MG 1 capsule Orally Onc e a day 03/30/2024 Active Social History Tobacco Control (Standard) Question Answer Notes Additional Findings: Tobacco user Chews tobacco Problems Problem Type SNOMED Code ICD Code Onset Dates Problem Status W/U Status Risk Notes Problem Erectile dysfunction co-occurrent and due to arterial insufficiency (disorder) (313799372781356) Erectile dysfunction due to arterial insufficiency (N52.01) Active confirmed Problem Lower urinary tract symptoms due to benign prostatic hypertrophy (56831484805013) Enlarged prostate with lower urinary tract symptoms (N40.1) Active confirmed Vital Signs Blood pressure systolic 138 mm Hg 03/30/19 25 Blood pressure diastolic 76 mm Hg 025 Heart Rate 108 /min 03/30/2024 Height 70 in 03/30/2024 Weight 258.6 lbs 03/30/2024 BMI 37.1 kg/m2 03/30/2024 Oximetry 98 % 03/30/2024 Encounters Encounter Location Date Provider Diagnosis QA on Request [address] [place] [address] 03/30/2024 KATIE ALMEIDA Erectile dysfunction due to arterial insufficiency N52.01 ; Enlarged prostate with lower urinary tract symptoms N40.1 and Nocturia R35.1 Assessments Encounter Date Diagnosis (ICD Code) Assessment Notes Treatment Notes Treatment Clinical Notes Section Notes 03/30/2024 Erectile dysfunction due to arterial insufficiency (ICD-10 - N52.01) Involving the ED, we discussed the concept behind ED (likely based on his other comorbidities versus ADLs) and the treatment options for that include PDE 5 inhibitors (E.G Viagra, Cialis, Levitra), vacuum erection devices, intracavernosal injections/intraur ethral therapies, and surgical treatment with placement of an inflatable penile prosthesis.The pros and cons of all modalities were discussed at length. Pamphlet was given to the patient involving those treatment options and explained in further detail. I discussed if he would like to go further than the PDE 5 inhibitors that he see patient services representative prior to starting any of those options and can start/schedule at that time. We also discussed the new gainswave versus urogold in what that intels. Also discussed pending insurance/costs coverage. Patient can discuss further with scheduling staff if needed. The plan is to set patient up with cialis 20mg, PRN. Side effects reviewed. Prescription sent. His biggest concern is BPH/LUTS. Will refer to urology for further evaluation involving this. Recommended to move forward with cystoscopy. This was explained in detail. Further recommendations pending scope. Will reassess ED at next visit in urology. Patient now understands the importance of appropriate diet and exercise regimen. All questions that were asked, were answered, and he is satisfied with this plan. 03/30/2024 Enlarged prostate with lower urinary tract symptoms (ICD-10 - N40.1) Involving the ED, we discussed the concept behind ED (likely based on his other comorbidities versus ADLs) and the treatment options for that include PDE 5 inhibitors (E.G Viagra, Cialis, Levitra), vacuum erection devices, intracavernosal injections/intraur ethral therapies, and surgical treatment with placement of an inflatable penile prosthesis.The pros and cons of all modalities were discussed at length. Pamphlet was given to the patient involving those treatment options and explained in further detail. I discussed if he would like to go further than the PDE 5 inhibitors that he see patient services representative prior to starting any of those options and can start/schedule at that time. We also discussed the new gainswave versus urogold in what that intels. Also discussed pending insurance/costs coverage. Patient can discuss further with scheduling staff if needed. The plan is to set patient up with cialis 20mg, PRN. Side effects reviewed. Prescription sent. His biggest concern is BPH/LUTS. Will refer to urology for further evaluation involving this. Recommended to move forward with cystoscopy. This was explained in detail. Further recommendations pending scope. Will reassess ED at next visit in urology. Patient now understands the importance of appropriate diet and exercise regimen. All questions that were asked, were answered, and he is satisfied with this plan. 03/30/2024 Nocturia (ICD-10 - R35.1) Involving the ED, we discussed the concept behind ED (likely based on his other comorbidities versus ADLs) and the treatment options for that include PDE 5 inhibitors (E.G Viagra, Cialis, Levitra), vacuum erection devices, intracavernosal injections/intraur ethral therapies, and surgical treatment with placement of an inflatable penile prosthesis.The pros and cons of all modalities were discussed at length. Pamphlet was given to the patient involving those treatment options and explained in further detail. I discussed if he would like to go further than the PDE 5 inhibitors that he see patient services representative prior to starting any of those options and can start/schedule at that time. We also discussed the new gainswave versus urogold in what that intels. Also discussed pending insurance/costs coverage. Patient can discuss further with scheduling staff if needed. The plan is to set patient up with cialis 20mg, PRN. Side effects reviewed. Prescription sent. His biggest concern is BPH/LUTS. Will refer to urology for further evaluation involving this. Recommended to move forward with cystoscopy. This was explained in detail. Further recommendations pending scope. Will reassess ED at next visit in urology. Patient now understands the importance of appropriate diet and exercise regimen. All questions that were asked, were answered, and he is satisfied with this plan. Plan Of Treatment Medication Medication Name Sig Start Date Stop Date Notes Tadalafil 20 MG 1 tablet as needed O rally as needed; Duration: 30 days 03/30/2024 07/28/2024 Referrals Referral Date Details 03/30/2024 03/30/2024, BPH w/ n octuria, KATIE COSTELLO Next Appt Details Follow Up: refer urology, Re ason: Progress Notes * Noble BERMEODOB:1965 (60 yo M)Acc No.[id number]:03/30/2024 Patient: Noble AARON Provider: Ciro Almeida NP :1965 A ge:59 Y S ex:Male Date:03/30/2024 Address:[address] [place], [place] [id number] Pcp:Shikha Garcia Subjective: * Chief Complaints: * 1 . NEW PT - ED. * HPI: * : 59 yo male, former smoker/currently chews tobacco, here today to discuss and evaluation for erectile dysfunction as he was seen initially and started on treatment with PCP and in the past he has trialed daily 5mg cialis. He reports difficulty gaining and maintaining erections. He does have other comorbidities. Here today to discuss further, including discussing plan of care with todays visit. His biggest concern aside from ED, is BPH/ LUTS increasing over the last notes. Nocturia x 3. Denies hematuria. Frequency / urgency. Denies family history of urology care. He has never seen urology. Does see psychiatrist for anxiety depression. Does have cardiac history. He has not seen cardiology in sometime. His on blood thinners. * ROS: G eneral / Constitutional: Patient denies chills, fever, change in appetite. A&O Gastrointestinal: Patient denies abdominal pain, nausea, vomiting, diarrhea. Genitourinary: Comments See HPI for details. * Medical History: H ypertension, Type 2 Diabetes, Erectile Dysfunction. * Surgical History: C holecystectomy , Maker Bypass , Left Knee Replacement , Carpel Tunnel, Bilateral , L3-L4 Vertebral Repair . * Family History: F ather: , multiple sclerosis. M other: alive, type I diabetes, renal failure, dementia. * Social History: T obacco Use: T obacco Control (Standard) A dditional Findings: Tobacco user C hews tobacco. * Medications: T aking Flomax 0.4 MG Capsule 1 capsule Orally Once a day , Taking Cialis 5 MG Tablet 1 tablet as needed Orally Once a day , Taking metFORMIN HCl 500 MG Tablet 1 tablet with a meal in AM and 1 Tablet with a meal in PM Orally Twice Daily , Taking Insulin Lispro 200 UNIT/ML Solution Pen-injector 80 units in the AM and 80 Units in the PM Subcutaneous Twice Daily , Taking Ozempic (1 MG/DOSE) 4 MG/3ML Solution Pen- injector as directed Subcutaneous , Medication List reviewed and reconciled with the patient * Allergies: P lavix: hives - Allergy. Objective: * Vitals: H R:108/min, BP:138/76mm Hg, Wt:258.6lbs, BMI:37.1Index, Ht: 70 in, Oxygen sat %:98%, Ht-cm: 177.8 cm, Wt-k.3 kg. * Examination: G eneral Examination: GENERAL APPEARANCE: a lert, well hydrated, in no distress.? HEAD: n ormocephalic. EYES: P ERRL. SKIN: g ood turgor, warm, and dry. HEART: n o signs of abnormalities. LUNGS: n o signs of distress. ABDOMEN: n ormal, soft, nontender, nondistended. MALE GENITOURINARY: r efer to the HPI and Assessment/Plan.? MUSCULOSKELETAL: f ull ROM. EXTREMITIES: n ormal. PERIPHERAL PULSES: n ormal. NEUROLOGIC: A &O. Assessment: * Assessment: 1. E rectile dysfunction due to arterial insufficiency - N52.01 (Primary) 2 .?Enlarged prostate with lower urinary tract symptoms - N40.1 3 . N octuria - R35.1 Involving the ED, we discuss ed the concept behind ED (likely based on his other comorbidities versus ADLs) and the treatment options for that include PDE 5 inhibitors (E.G Viagra, Cialis, Levitra), vacuum erection devices, intracavernosal injections/intraurethral therapies, and surgical treatment with placement of an inflatable penile prosthesis.The pros and cons of all modalities were discussed at length. Pamphlet was given to the patient involving those treatment options and explained in further detail. I discussed if he would like to go further than the PDE 5 inhibitors that he see patient services representative prior to starting any of those options and can start/schedule at that time. We also discussed the new gainswave versus urogold in what that intels. Also discussed pending insurance/costs coverage. Patient can discuss further with scheduling staff if needed. The plan is to set patient up with cialis 20mg, PRN. Side effects reviewed. Prescription sent. His biggest concern is BPH/LUTS. Will refer to urology for further evaluation involving this. Recommended to move forward with cystoscopy. This was explained in detail. Further recommendations pending scope. Will reassess ED at next visit in urology. P atient now understands the importance of appropriate diet and exercise regimen. All questions that were asked, were answered, and he is satisfied with this plan. Plan: * Treatment: 2. E nlarged prostate with lower urinary tract symptoms Referral To:KATIE COSTELLO Urology Reason:BPH w/ nocturia * Follow Up: [facility] * Billing Information: * Visit Code: 25380 Office Visit, New Pt., Level 4. * Procedure Codes: * Electronic signature of ELIZA ALMEIDA APRN on 02/15/2025 at 05:28 PM YARDAGE CONTROL OPERATOR FORMING Sign off status: Pending * Provider: Ciro Almeida NP Date: 0 03/30/2024 Generated for Lui andrade/Marielena/Chantalitting on: 04/18/2024 05:28 PM YARDAGE CONTROL OPERATOR FORMING History and Physical Notes * Examination Category Sub-Category Detail Notes Category Not es General Examination GENERAL APPEARANCE: alert, w ell hydrated, in no distress HEAD: normocephalic EYES: PERRL HEART: no signs of abnormal ities LUNGS: no signs of distress ABDOMEN: normal, soft, nonten agnieszka, nondistended NEUROLOGIC: A&O SKIN: good turgor, warm, a nd dry EXTREMITIES: normal PERIPHERAL PULSES: normal MUSCULOSKELETAL: full ROM MALE GENITOURINARY: refer to the HPI and Assessment/Plan Consultation Request Notes Referral Date Referring Provider Referred Provider Not es 03/30/2024 KATIE ALMEIDA DANIEL BPH w/ noct uria
--- OUTSIDE RECORDS SUMMARY | 2024-04-27 11:00 | XMS_ITS ---
Author Organization [facility], [facility] Address [address] [place] [address] Care Team Providers Care Hotel Houseman Name Role Phone Shikha Garcia Primary Care Provider Francisco Louis Unavailable [phone] KATERINA CHOI Unavailable [phone] REASON FOR VISIT w/ new IPSS Encounters Encounter Location Date Provider Diagnosis [facility] [employer], [facility] [address] [facility] [place] [address] 04/27/2024 KATERINA CHOI Plan Of Treatment No Information Progress Notes * Noble BERMEODOB:1965 (60 yo M)Acc No.[id number]:04/27/2024 Patient: Noble AARON Provider: Anju CHOI MD :1965 A ge:59 Y S ex:Male Date:04/27/2024 Address:[place] [address] Pcp:Shikha Garcia Subjective: * Chief Complaints: * 1 . w/ new IPSS. * Medical History: Objective: * Vitals: Assessment: Plan: * Treatment: * Billing Information: * Visit Code: * Procedure Codes: * Electronic signature of AUST IN MD STEPH on 02/15/2025 at 05:27 PM JIG AND FIXTURE BUILDER Sign off status: Pending * Provider: Anju CHOI MD Date: 0 04/27/2024 Generated for Printi ng/Faxing/eTransmitting on: 1 04/18/2024 05:27 PM JIG AND FIXTURE BUILDER
--- OUTSIDE RECORDS SUMMARY | 2025-02-02 11:00 | XMS_ITS ---
Author Organization [facility], [facility] Address [address] [place] [address] Care Team Providers Care Business Instructor Name Role Phone Shikha Garcia Primary Care Provider Francisco Louis Unavailable [phone] REASON FOR VISIT 4 mo w/ fr/pvr Encounters Encounter Location Date Provider Diagnosis [facility], [facility] [address] [place] [address] 02/02/2025 Francisco Syed Plan Of Treatment No Information Progress Notes * ELVIENobleDOB:1965 (60 yo M)Acc No.[id number]:02/02/2025 Progress Notes Patient: Noble AARON Provider: Ciro Syed APRN :1965 A ge:60 Y S ex:Male Date:02/02/2025 Address:[place] [address] Pcp:Shikha Garcia Subjective: * Chief Complaints: * 1 . 4 mo w/ fr/pvr. * Medical History: Objective: * Vitals: Assessment: Plan: * Treatment: * Billing Information: * Visit Code: * Procedure Codes: * Electronic signature of Robb Syed APRN on 02/15/2025 at 05:29 PM CHUCKING MACHINE OPERATOR Sign off status: Pending * Provider: Ciro Syed APRN Date: 04/04/2024 Generated for Printi ng/Faxing/eTransmitting on: 04/18/2024 05:29 PM CHUCKING MACHINE OPERATOR
[2025-02-15 12:43] VITALS: BP 126/85; PULSE 99; TEMP 36.6; O2SAT 100; BMI 31.8
--- NOTE | 2025-02-15 12:46 | ECG_ITS ---
[facility] Test Date: 2025-02-15 Pat Name: Noble Dumont Department: Room: Gender: Male Strategic Sourcing Manager: : 1965 Requested By: Yordan Del Cid Order Number: [id number] Pettit MD: Todd Zazueta M.D. Measurements Intervals [place] Rate: 94 P: 48 DE: 163 QRS: -52 QRSD: 114 T: 58 QT: 371 QTc: 466 Interpretive Statements SINUS RHYTHM LEFT AXIS DEVIATION [QRS AXIS < -30] POSSIBLE ANTERIOR MYOCARDIAL INFARCTION , OF INDETERMINATE AGE [30 ms Q WAVE IN V3/V4, OR R < 0.2 mV IN V4] INTERPRETATION BASED ON A DEFAULT AGE OF 40 YEARS Compared to ECG 04/08/2018 10:41:12 NO SIGNIFICANT CHANGE Electronically Signed On 02-17-2025 22:30:08 RESIDENT HALL DIRECTOR by Todd Zazueta M.D. [email or web address] [id number]
--- NOTE | 2025-02-15 12:46 | XR_ITS ---
WS: [id number] XR chest 1V portable [id number] REASON FOR EXAM: cp FINDINGS: The chest is unchanged compared to 06/01/2024. Sternal sutures. Moderate tortuosity and ectasia of the ascending and descending thoracic aorta. Normal heart size. Calcified granulomatous disease bilaterally. No acute pulmonary parenchymal or pleural abnormality. Moderate degenerative spondylosis in the thoracic spine. XR/XR chest 1V portable [id number] IMPRESSION: Stable chest without acute abnormality.
[2025-02-15 13:15] LABS: Hematocrit 46.6 % (37-53); Hemoglobin 16.30 g/dL (11.27-16.99); Mean Corpuscular HGB Conc 35.0 g/dL (30-55); Mean Corpuscular Hemoglobin 28.2 pg (27-33); Mean Corpuscular Volume 80.8 fl (82-101); Nucleated Red Blood Cells % 0 %; Platelet Count 207 10^3/cmm (157-399); Red Blood Count 5.77 10^6/uL (3.85-5.65); White Blood Count 9.87 10^3/uL (3.29-11.43)
[2025-02-15 13:38] LABS: Albumin Level 4.2 g/dL (3.5-5.2); Alkaline Phosphatase 119 U/L (40-130); Blood Urea Nitrogen 17 mg/dL (6-20); Calcium 9.4 mg/dL (8.5-10.5); Carbon Dioxide 22 mmol/L (22-29); Chloride 91 mmol/L (98-107); Globulin 3.1 g/dL (1.3-4.6); Lipase 36 U/L (13-60); Osmolality Calculated 293 mOsm/kg (285-295); Total Protein 7.3 g/dL (6.6-8.7)
--- NOTE | 2025-02-15 13:39 | ED_ITS ---
HPI - Chest Pain 2 General: Chief Complaint: Chest Pain Stated Complaint: cp Time Seen by Provider: 02/15/25 13:17 Source: patient Mode of arrival: ambulatory Limitations: no limitations History of Present Illness: Patient is a 60-year-old male with past medical history of heart bypass who presents to the emergency department for evaluation of chest pain that woke him up from sleep last night at midnight. States when it woke him up it was reproducible to palpation into the left anterior chest, he did state at that time is a 10/10 and is currently 4/10. Has not taken any medications states that he has not refilled his nitroglycerin so he did not take any of these. He went to urgent care initially they sent him to the ED for evaluation because they had found him hypotensive there 90s systolic blood pressure. Here it is 126/85 with initial triage. He says the pain is still present, last night it had radiated to his left jaw and left arm but currently no radiation. Does note some back pain but states this has been present for a few weeks. No history of aneurysm. He is not reporting any nausea vomiting diarrhea, lightheadedness or dizziness, diaphoresis, or abdominal pain. No recent medication changes that he notes. States he has not seen chief development officer for years, his CABG procedure was 7 years ago and he has not had any issues since. Currently pain still reproducible to palpation to left anterior chest, denies any significant strenuous activity. MD complaint: chest pain Pertinent past history: CABG Onset (ago): hour(s) Timing of current episode: constant and other (improving) Prior episodes: No Onset: awoke with symptoms Pain location: left chest Pain radiation: left arm and jaw/teeth Severity: severe Pain scale (0-10): 10 Quality: sharp Relieving factors: rest Exacerbating factors: palpation Associated symptoms: Deny abdominal pain, dyspnea, fever(s), nausea, palpitations or vomiting Related Data Home Medications ?Medication ?Instructions ?Recorded ?Confirmed multivitamin 1 tab PO QAM 03/24/19 aspirin 325 mg tablet 325 mg PO DAILY 06/14/2109/02 cholecalciferol (vitamin D3) 25 25 mcg PO DAILY 12/14/24 mcg (1,000 unit) capsule Previous Rx's ?Medication ?Instructions ?Recorded lisinopril 10 mg tablet See Rx Instructions .Route 1 04/11/22 .COMPLEX #90 tabs tamsulosin 0.4 mg capsule See Rx Instructions .Route 1 05/05/23 .COMPLEX #30 caps tadalafil 10 mg tablet See Rx Instructions .Route 0 03/23/24 .COMPLEX #90 tabs albuterol sulfate 90 mcg/actuation 2 puff inhalation Q ID PRN 05/20/24 aerosol inhaler (Ventolin HFA) shortness of breath or wheezing #6.7 grams orlistat 120 mg capsule 120 mg PO TID 30 days #90 ca ps 07/30/24 blood-glucose,lead php developer,cont #1 ea 07/31/24 (Dexcom G7 Human Services Manager) amlodipine 2.5 mg tablet See Rx Instructions .Route 0 10/12/24 .COMPLEX #90 tabs apremilast 30 mg tablet (Otezla) 30 mg PO BID #180 tab s 10/12/24 carvedilol 12.5 mg tablet See Rx Instructions .Route 0 10/12/24 .COMPLEX #180 tabs chlorthalidone 25 mg tablet See Rx Instructions .Route 10/12/24 .COMPLEX #90 tabs fenofibrate 160 mg tablet See Rx Instructions .Route 0 10/12/24 .COMPLEX #90 tabs pantoprazole 40 mg tablet,delayed See Rx Instructions .Route 10/12/24 release .COMPLEX #180 tabs pen needle, diabetic 31 gauge x #100 ea 10/12/24/ (TechLITE Pen Needle) pregabalin 75 mg capsule (Lyrica) 75 mg PO BID 30 days #60 caps 10/12/24 rosuvastatin 40 mg tablet See Rx Instructions .Route 0 10/12/24 .COMPLEX #90 tabs dapagliflozin propanediol 10 mg 10 mg PO DAILY #90 tab s 10/13/24 tablet (Farxiga) ergocalciferol (vitamin D2) 1,250 See Rx Instructions .Route 11/04/24 mcg (50,000 unit) capsule .COMPLEX #13 caps fluticasone propionate 50 See Rx Instructions .Route 0 11/04/24 mcg/actuation nasal .COMPLEX #16 grams spray,suspension venlafaxine 150 mg 150 mg PO QAM #90 caps 12/14 capsule,extended release 24 hr (Effexor XR) venlafaxine 75 mg capsule,extended 75 mg PO QAM #90 ca ps 12/14/24 release 24 hr (Effexor XR) insulin regular hum U-500 conc 500 See Rx Instructions .Route 12/16/24 unit/mL(3 mL) subcut pen (Humulin .COMPLEX #27 mL R U-500 (Conc) Insulin Kwikpen) blood-glucose sensor (Dexcom G7 #3 ea 01/15/25 Sensor device) metformin 500 mg tablet,extended See Rx Instructions . Route 01/24/25 release 24 hr .COMPLEX #120 tabs cyclobenzaprine 10 mg tablet See Rx Instructions .Rout e 02/01/25 .COMPLEX #60 tabs cyproheptadine 4 mg tablet 8 mg (2 x 4 mg) PO .bedtime #180 02/09/25 tabs diazepam 10 mg tablet (Valium) 10 mg PO BID PRN anxiet y #60 tabs 02/09/25 Allergies Allergy/AdvReac Type Severity Reaction Status Date / Time clopidogrel (From Plavix) Allergy Intermediate breaks out Verified 02/15/25 12:52 in hives divalproex sodium (From AdvReac Intermediate blurred Verified 02/15/25 12:52 Depakote) vision, dilated pupils gabapentin AdvReac Intermediate Makes Verified 02/15/25 12:52 groggy Review of Systems 2 General: Reports: 10 or more systems reviewed and unremarkable except in HPI and below Const: Denies: fever(s), chills or fatigue Eyes: Denies: change in vision ENMT: Denies: throat pain, ear or mastoid pain or nasal discharge Card: Reports: chest pain; Denies: palpitations, swelling of feet/ankles or lightheadedness Resp: Denies: dyspnea, productive cough or wheezing GI: Denies: abdominal pain, nausea, vomiting, diarrhea or constipation : Denies: flank pain, difficulty urinating, dysuria or urinary frequency Musc: Reports: back pain; Denies: neck pain or joint pain Skin/Breast: Denies: rash Neuro: Denies: headache(s), numbness in extremities or weakness in extremities PFSH ED 2 PFSH: Medical History Nicotine dependence, cigarettes, uncomplicated Enrolled in chronic care management 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 Psychiatric care Nicotine dependence, chewing tobacco, uncomplicated Fibromyalgia Panic disorder without agoraphobia with moderate panic attacks Major depressive disorder, recurrent episode, moderate with anxious distress Surgical History History of vasectomy History of tonsillectomy and adenoidectomy History of hernia surgery History of back surgery History of cholecystectomy History of carpal tunnel surgery History of knee replacement History of heart bypass surgery Family History Father Multiple sclerosis Legally blind Mother Diabetes Social History Smoking and tobacco/nicotine status: unknown if used tobacco/nicotine Second hand smoke exposure: No Alcohol intake: current Alcohol intake frequency: holidays/special occasions only Lives independently: Yes Household members: spouse Marital status: Number of children: 3 Number of grandchildren: 7 Highest education level completed: High School Graduate service: No Current occupational status: disabled Previous occupational history: [employer] x 17 years Do you think of yourself as: Straight/Heterosexual Current gender identity: Male Sil/Jew: Christian Special sil needs: No Agree to transfusion: Yes ( if thats the last resort ) Physical Exam 2 Const: COMMON NORMALS: no acute distress, patient oriented x3 and no limitations GENERAL APPEARANCE: cooperative, comfortable and well developed ORIENTATION/CONSCIOUSNESS: Yes awake, Yes oriented to person, Yes oriented to place and Yes oriented to time HENMT: COMMON NORMALS: normocephalic, atraumatic and hearing grossly normal bilaterally HEAD & SCALP: normocephalic and atraumatic Eye: COMMON NORMALS: Equal, round and reactive pupils present, EOMs intact bilaterally and conjunctivae normal CONJUNCTIVA: Yes conjunctivae normal P UPIL: Yes Equal, round and reactive pupils present Neck/C-Spine: COMMON NORMALS: full ROM, supple and no JVD Chest: OTHER: Poststernotomy scar. Reproducible tenderness to palpation of the left anterior chest wall. Resp: COMMON NORMALS: normal respiratory effort, No retractions, No use of accessory muscles and clear to auscultation bilaterally AUSCULTATION: clear to auscultation bilaterally Cardio: COMMON NORMALS: no JVD, regular rate, regular rhythm, No clicks present (Cardio), No murmurs present (Cardio) and No rub (Cardio) RATE: r egular rate RHYTHM: regular rhythm GI: COMMON NORMALS: Normal to inspection, nondistended, normoactive bowel sounds present, Soft to palpation and non-tender AUSCULTATION: Yes normoactive bowel sounds PALPATION: Yes Soft to palpation RECTAL EXAM: Yes deferred Extremity: COMMON NORMALS: normal to inspection, full ROM and capillary refill normal Neuro: COMMON NORMALS: patient oriented x3, moves all extremities, no focal motor deficits and no sensory deficits noted SENSORIUM/ORIENTATION: Yes oriented to person, Yes oriented to place and Yes oriented to time Skin: COMMON NORMALS: no rashes or lesions noted GENERAL SKIN EXAM: no rashes or lesions noted Course 2 Vital Signs: Vital signs: Vital Signs Temperature 97.8 F 02/15/25 12:43 Pulse Rate 92 02/15/25 15:32 Respiratory Rate 16 02/15/25 15:32 Blood Pressure 105/75 02/15/25 15:32 Pulse Oximetry 96 02/15/25 15:32 Oxygen Delivery Me thod Room Air 02/15/25 15:32 MDM - Chest Pain Medical Decision Making Patient presented with left anterior chest pain that woke him up from sleep at midnight. Reproducible to palpation, initially noted it was a 10/10 it is a 4/10 at time of examination he had not take any medications. History of CABG, this was 7 years ago he has not followed up with cardiology in many years. No associated symptoms other than the left anterior chest pain, had noted back pain but stated that this has been going on for weeks. He had no history of aortic aneurysm or previous dissection. Clinically stable at time of examination, vitals unremarkable, he had told me urgent care his blood pressure was 90/20 but here it has been in the 120 systolic and 80s diastolic. On exam the pain easily reproducible to palpation to the left anterior chest, he is stated this was comparable to the onset of symptoms in the night. Lab work ordered and delta troponin is negative, rest of the lab work unremarkable other than blood sugar 514 as he has diabetic. In the room states that he had not taken his insulin in the past 4 days. Suspect that this elevation is from noncompliance, insulin and fluids given here and blood sugar brought down appropriately. He is thoroughly informed to keep a log of his blood sugar at home so as not to allow him to become hyperglycemic like this again. He had reported that he wanted to go home he was feeling better as I was reporting to him his workup, and being that he has not seen cardiology in some time I will refer him for outpatient management. Low suspicion that this chest pain at this time is cardiac in nature however with any recurrence of the pain or any change she is instructed to come back immediately for reevaluation. He does agree with this plan and will be discharged at this time. Lab Data 02/15/25 13:08 02/15/25 13:08 Radiology Impressions Chest X-Ray 02/15/25 12:46 IMPRESSION: Stable chest without acute abnormality. Laboratory Results WBC 9.87 10^3/uL (3.29-11.43) 02/15/25 13:08 RBC 5.77 10^6/uL (3.85-5.65) H 02/15/25 13:08 Hgb 16.30 g/dL (11.27-16.99) 02/15/25 13:08 Hct 46.6 % (37-53) 02/15/25 13:08 MCV 80.8 fl (82-101) L 02/15/25 13:08 MCH 28.2 pg (27-33) 02/15/25 13:08 MCHC 35.0 g/dL (30-55) 02/15/25 13:08 RDW 13.2 % (12.1-15.1) 02/15/25 13:08 Plt Count 207 10^3/cmm (157-399) 02/15/25 13:08 MPV 11.5 fL (7.4-10.4) H 02/15/25 13:08 Neut % (Auto) 70.0 % 02/15/25 13:08 Lymph % (Auto) 22.8 % 02/15/25 13:08 [place] % (Auto) 6.2 % 02/15/25 13:08 Eos % (Auto) 0.6 % 02/15/25 13:08 Baso % (Auto) 0.2 % 02/15/25 13:08 Neut # (Auto) 6.91 10^3/uL (1.8-7.7) 02/15/25 13:08 Lymph # (Auto) 2.3 10^3/uL (0.8-4.8) 02/15/25 13:08 [place] # (Auto) 0.6 10^3/uL (0.2-0.9) 02/15/25 13:08 Eos # (Auto) 0.1 10^3/uL (0.0-0.8) 02/15/25 13:08 Baso # (Auto) 0.0 10^3/uL (0.0-0.1) 02/15/25 13:08 Nucleated RBC % (auto) 0 % 02/15/25 13:08 Nucleated RBCs # 0.0 /100WBC 02/15/25 13:08 Sodium 129 mmol/L (136-145) L 02/15/25 13:08 Potassium 3.7 mmol/L (3.5-5.1) 02/15/25 13:08 Chloride 91 mmol/L (98-107) L 02/15/25 13:08 Carbon Dioxide 22 mmol/L (22-29) 02/15/25 13:08 Anion Gap 19.7 (5-19) H 02/15/25 13:08 BUN 17 mg/dL (6-20) 02/15/25 13:08 Creatinine 0.7 mg/dL (0.7-1.2) 02/15/25 13:08 GFR Calculation 115.8 mL/min (90-130) 02/15/25 13:08 Glucose 514 mg/dL (65-115) H* 02/15/25 13:08 POC Glucose 466 mg/dL (70-110) H 02/15/25 14:25 Calculated Osmolality 293 mOsm/kg (285-295) 02/15/25 13:08 Calcium 9.4 mg/dL (8.5-10.5) 02/15/25 13:08 Total Bilirubin 0.4 mg/dL (0.15-1.2) 02/15/25 13:08 AST 5 U/L (0-40) 02/15/25 13:08 ALT < 5 U/L (0-41) 02/15/25 13:08 Alkaline Phosphatase 119 U/L (40-130) 02/15/25 13:08 Troponin T Baseline 31 ng/L (0-15) H 02/15/25 13:08 Troponin T 120 Minute 28.64 ng/L (0-15) H 02/15/25 15:21 Delta Troponin T -2.36 ABS# (0-10) L 02/15/25 15:21 Total Protein 7.3 g/dL (6.6-8.7) 02/15/25 13:08 Albumin 4.2 g/dL (3.5-5.2) 02/15/25 13:08 Globulin 3.1 g/dL (1.3-4.6) 02/15/25 13:08 Lipase 36 U/L (13-60) 02/15/25 13:08 All radiology interpretation(s) finalized by discharge Discharge Plan Discharge Patient Disposition: Home Clinical Impression: Chest pain Qualifiers: Chest pain type: unspecified Qualified Code(s): R07.9 - Chest pain, unspecified Condition: Stable Prescriptions: No Action multivitamin Tablet 1 tab PO QAM lidocaine (PF) 10 mg/mL (1 %) solution 10 mg SUBCUT ONCE Qty: 2.5 0RF cholecalciferol (vitamin D3) 25 mcg (1,000 unit) capsule 25 mcg PO DAILY aspirin 325 mg tablet 325 mg PO DAILY albuterol sulfate [Ventolin HFA] 90 mcg/actuation HFA aerosol inhaler 2 puff inhalation QID PRN (Reason: shortness of breath or wheezing) Qty: 6.7 2RF diazepam [Valium] 10 mg tablet 10 mg PO BID PRN (Reason: anxiety) Qty: 60 3RF Rx Instructions: Take one tablet twice per day as needed for anxiety cyproheptadine 4 mg tablet 8 mg PO .bedtime Qty: 180 2RF Rx Instructions: Take two tablets at bedtime orlistat 120 mg capsule 120 mg PO TID 30 Days Qty: 90 2RF Rx Instructions: administer during or up to 1 hour after meal dapagliflozin propanediol [Farxiga] 10 mg tablet 10 mg PO DAILY Qty: 90 0RF amlodipine 2.5 mg tablet See Rx Instructions .ROUTE .COMPLEX Qty: 90 1RF Dose Instruction: TAKE ONE TABLET BY MOUTH EVERY DAY Rx Instructions: TAKE ONE TABLET BY MOUTH EVERY DAY Otezla 30 mg tablet 30 mg PO BID Qty: 180 4RF Rx Instructions: 340-B carvedilol 12.5 mg tablet See Rx Instructions .ROUTE .COMPLEX Qty: 180 1RF Dose Instruction: TAKE ONE TABLET BY MOUTH TWICE DAILY WITH MEALS Rx Instructions: TAKE ONE TABLET BY MOUTH TWICE DAILY WITH MEALS chlorthalidone 25 mg tablet See Rx Instructions .ROUTE .COMPLEX Qty: 90 1RF Dose Instruction: TAKE ONE TABLET BY MOUTH DAILY Rx Instructions: TAKE ONE TABLET BY MOUTH DAILY fenofibrate 160 mg tablet See Rx Instructions .ROUTE .COMPLEX Qty: 90 1RF Dose Instruction: TAKE 1 TABLET BY MOUTH DAILY Rx Instructions: TAKE 1 TABLET BY MOUTH DAILY pantoprazole 40 mg tablet,delayed release (DR/EC) See Rx Instructions .ROUTE .COMPLEX Qty: 180 1RF Dose Instruction: TAKE ONE TABLET BY MOUTH TWICE DAILY Rx Instructions: TAKE ONE TABLET BY MOUTH TWICE DAILY rosuvastatin 40 mg tablet See Rx Instructions .ROUTE .COMPLEX Qty: 90 1RF Dose Instruction: TAKE ONE TABLET BY MOUTH EVERY DAY Rx Instructions: TAKE ONE TABLET BY MOUTH EVERY DAY pregabalin [Lyrica] 75 mg capsule 75 mg PO BID 30 Days Qty: 60 5RF (DME) pen needle, diabetic [TechLITE Pen Needle] 31 gauge x 5/16 needle See Rx Instructions .ROUTE .COMPLEX Qty: 100 5RF Dose Instruction: USE DIRECTED Rx Instructions: USE DIRECTED venlafaxine [Effexor XR] 150 mg capsule,extended release 24hr 150 mg PO QAM Qty: 90 2RF Rx Instructions: Take one capsule every morning venlafaxine [Effexor XR] 75 mg capsule,extended release 24hr 75 mg PO QAM Qty: 90 2RF Rx Instructions: Take one capsule every morning lisinopril 10 mg tablet See Rx Instructions .ROUTE .COMPLEX Qty: 90 4RF Dose Instruction: TAKE ONE TABLET BY MOUTH DAILY Rx Instructions: TAKE ONE TABLET BY MOUTH DAILY tamsulosin 0.4 mg capsule See Rx Instructions .ROUTE .COMPLEX Qty: 30 0RF Dose Instruction: TAKE ONE CAPSULE BY MOUTH DAILY Rx Instructions: TAKE ONE CAPSULE BY MOUTH DAILY tadalafil 10 mg tablet See Rx Instructions .ROUTE .COMPLEX Qty: 90 0RF Dose Instruction: TAKE ONE TABLET BY MOUTH DAILY Rx Instructions: TAKE ONE TABLET BY MOUTH DAILY (DME) Dexcom G7 Human Services Manager [facility] [place] See Rx Instructions .ROUTE .MEDSUPPLY Qty: 1 0RF Rx Instructions: As directed fluticasone propionate 50 mcg/actuation spray,suspension See Rx Instructions .ROUTE .COMPLEX Qty: 16 5RF Dose Instruction: instill 2 sprays into each nostril once daily Rx Instructions: instill 2 sprays into each nostril once daily ergocalciferol (vitamin D2) 1,250 mcg (50,000 unit) capsule See Rx Instructions .ROUTE .COMPLEX Qty: 13 0RF Dose Instruction: TAKE ONE CAPSULE BY MOUTH ONCE WEEKLY Rx Instructions: TAKE ONE CAPSULE BY MOUTH ONCE WEEKLY Humulin R U-500 (Conc) Kwikpen 500 unit/mL (3 mL) insulin pen See Rx Instructions .ROUTE .COMPLEX Qty: 27 3RF Dose Instruction: inject 50 units UNDER THE SKIN THREE TIMES DAILY Rx Instructions: inject 50 units UNDER THE SKIN THREE TIMES DAILY (DME) Dexcom G7 Sensor Device See Rx Instructions .ROUTE .COMPLEX Qty: 3 2RF Dose Instruction: USE DIRECTED; change every 10 days Rx Instructions: USE DIRECTED; change every 10 days metformin 500 mg tablet extended release 24 hr See Rx Instructions .ROUTE .COMPLEX Qty: 120 2RF Dose Instruction: TAKE 2 TABLETS BY MOUTH TWICE DAILY Rx Instructions: TAKE 2 TABLETS BY MOUTH TWICE DAILY cyclobenzaprine 10 mg tablet See Rx Instructions .ROUTE .COMPLEX Qty: 60 2RF Dose Instruction: TAKE ONE TABLET BY MOUTH THREE TIMES DAILY NEEDED FOR muscle spasm Rx Instructions: TAKE ONE TABLET BY MOUTH THREE TIMES DAILY NEEDED FOR muscle spasm Discharge Orders: Discharge ED (Routine); Ordered 02/15/25 Ordered By: Kashif Prieto Referrals: Shikha Garcia FNP [Primary Care Provider, Family Practice] Patient Instructions: Patient Portal & [place] Instructions Activity Restrictions/Additional Instructions: Discharge Instructions Diagnosis: Chest pain - cardiac cause ruled out Emergency Department Evaluation: Your evaluation in the emergency department included cardiac testing (ECG and blood tests) that did not show evidence of a heart attack or other acute cardiac problem. Your chest pain was reproducible with palpation (pressing on your chest), which suggests a non-cardiac cause. What This Means: While your cardiac workup was reassuring, chest pain can have many causes. You have been classified as low-risk for cardiac events based on your emergency department evaluation. However, it is important to follow up with specialists to determine the exact cause of your chest pain and ensure appropriate management. Follow-Up Care: Cardiology Appointment: - You will be referred to a chief development officer for outpatient evaluation - This appointment should occur within 30 days, and ideally within 14 days - The chief development officer will review your case and determine if any additional cardiac testing is needed - If you have an established chief development officer, please contact their office to schedule this appointment Primary Care Follow-Up: - Also schedule an appointment with your primary care physician within 30 days - Your primary care physician can help coordinate your care and evaluate other possible causes of your chest pain Possible Causes of Your Chest Pain: Since cardiac causes have been ruled out, other possibilities include: - Musculoskeletal pain (chest wall pain from muscles, ribs, or cartilage) - the most common cause - Gastrointestinal issues such as acid reflux or esophageal problems - Anxiety or stress-related chest pain - Other less common conditions When to Return to the Emergency Department: Seek immediate medical attention if you experience: - Chest pain that is different in character, more severe, or prolonged compared to your previous episode - Chest pain accompanied by shortness of breath, sweating, nausea, or lightheadedness - Chest pain that radiates to your arm, jaw, or back - Loss of consciousness or severe difficulty breathing - Any other concerning symptoms Medications: Continue taking all your current medications as prescribed. Your chief development officer or primary care physician may recommend additional medications after your follow-up evaluation. Activity: You may resume normal activities as tolerated. However, if chest pain recurs or worsens with activity, stop the activity and seek medical attention. Important Reminders: - Keep all follow-up appointments - Bring a list of your current medications to all appointments - Notify your healthcare providers if your symptoms change or worsen - If you do not receive a cardiology appointment within 2 weeks, please call your primary care physician's office for assistance with scheduling Print Language: Guinean Coding Level of Care Code ED Certified Ophthalmic Assistant for [facility] Heart Score HEART Score Components History: Slightly Suspicous EKG: Non-specific Changes Age: 45-64 yrs Risk Factors: 1 or 2 Risk Factors Troponin: Baseline Trop 16-45 ng/L HEART Score RESULT HEART Score: 4
[2025-02-15 13:40] LABS: Troponin(5th) Baseline 31 ng/L (0-15)
[2025-02-15 13:44] LABS: Glucose 514 mg/dL (65-115)
[2025-02-15 13:45] LABS: Anion Gap 19.7 (5-19); Potassium 3.7 mmol/L (3.5-5.1); Sodium 129 mmol/L (136-145)
[2025-02-15 13:50] LABS: Alanine Aminotransferase < 5 U/L (0-41); Aspartate Amino Transferase 5 U/L (0-40)
[2025-02-15] MEDS: insulin regular-human 100 units/1 mL 10 UNIT IVP (14:30)
--- NOTE | 2025-02-15 14:46 | ECG_ITS ---
[facility] Test Date: 2025-02-15 Pat Name: Noble Dumont Department: Room: Gender: Male Olap Developer: : 1965 Requested By: Yordan Del Cid Order Number: [id number] Wilver MD: Britany Hayes M.D. Measurements Intervals [place] Rate: 87 P: 55 MS: 158 QRS: -59 QRSD: 117 T: 54 QT: 380 QTc: 459 Interpretive Statements SINUS RHYTHM LEFT ANTERIOR FASCICULAR BLOCK [QRS AXIS <= -45, QR IN I, RS IN II] POSSIBLE ANTERIOR MYOCARDIAL INFARCTION , OF INDETERMINATE AGE [30 ms Q WAVE IN V3/V4, OR R < 0.2 mV IN V4] Compared to ECG 02/15/2025 12:47:39 Left anterior fascicular block now present Left-axis deviation no longer present Myocardial infarct finding still present Electronically Signed On 02-18-2025 18:16:35 DISTRIBUTION ANALYST by Britany Hayes M.D. [email or web address]
[2025-02-15 15:32] VITALS: BP 105/75; PULSE 92; RESP 16; O2SAT 96
[2025-02-15 16:16] VITALS: BP 123/72; PULSE 91; O2SAT 93
--- OUTSIDE RECORDS SUMMARY | 2025-02-15 17:27 | XMS_ITS | Clinical Summary ---
Author Organization [facility] Address [address] [place] [address] Care Team Providers Care Medical Imaging Tech Name Role Phone Agus Turner MD Primary Care Provider [phone] Allergies Active Allergy Reactions Criticality Noted Date Comments Clopidogrel Hives High 01/21/2020 Medications cholecalciferol, Vitamin D3, (VITAMIN D3) 1,000 unit Capsule Take by mouth daily. Active amLODIPine (NORVASC) 2.5 mg tablet Take 2.5 mg by mouth daily. Active cyproheptadine (PERIACTIN) 4 mg tabletIndications: Gastroesophageal reflux disease without esophagitis Take 4 mg by mouth 1 time daily as needed for Allergies. Active diazePAM (VALIUM) 10 mg tabletIndications: ELISABET (generalized anxiety disorder) Take 10 mg by mouth 2 times daily as needed for Anxiety. Active ipratropium-albute roL (DUONEB) 0.5 mg-3 mg(2.5 mg base)/3 mL Solution for NebulizationIndica tions:Chronic obstructive pulmonary disease, unspecified COPD type (CMS/HCC) Take 3 mL by inhalation every 4 hours as needed for Shortness of Breath. Active nitroglycerin (NITROSTAT) 0.4 mg Tablet, SublingualIndicati ons:Atherosclerosi s of [place] coronary artery of [place] heart without angina pectoris Place 0.4 mg under tongue every 5 minutes as needed for Chest Pain. Active QUEtiapine (SEROquel) 50 mg tabletIndications: ELISABET (generalized anxiety disorder),Recurren t major depressive disorder, in full remission Take 25 mg by mouth late in the day. May take remaining half tablet as needed for anxiety/agitation Active topiramate (TOPAMAX) 100 mg tabletIndications: ELISABET (generalized anxiety disorder),Recurren t major depressive disorder, in full remission Take 100 mg by mouth 2 times daily. Active venlafaxine (EFFEXOR XR) 150 mg Extended Release 24 hour capsuleIndications :ELISABET (generalized anxiety disorder),Recurren t major depressive disorder, in full remission Take 150 mg by mouth daily. Active venlafaxine (EFFEXOR XR) 75 mg Extended Release 24 hour capsuleIndications :ELISABET (generalized anxiety disorder),Recurren t major depressive disorder, in full remission Take 75 mg by mouth daily. Take along with 150mg capsule Active ketoconazole (Nizoral) 2 % ShampooIndications :Seborrheic dermatitis Apply 10 mL to wet scalp/etienne, lather, leave on 3 minutes, and rinse; apply twice weekly for 4 weeks. 120 mL 2 01/21/20 20 Active metFORMIN (GLUCOPHAGE XR) 500 mg Extended Release 24 hour tabletIndications: Type 2 diabetes mellitus without complication, with long-term current use of insulin (CMS/HCC) Take 2 Tablets (1,000 mg) by mouth daily. 180 Tablet 4 03/02/20 20 Active glipiZIDE (GLUCOTROL XL) 10 mg Extended Release 24 hour tabletIndications: Type 2 diabetes mellitus without complication, with long-term current use of insulin (CMS/HCC) Take 1 Tablet (10 mg) by mouth daily with breakfast. 90 Tablet 4 03/02/20 20 Active lisinopriL (PRINIVIL) 10 mg tablet Take 1 Tablet (10 mg) by mouth daily. 90 Tablet 4 03/02/20 20 Active glipiZIDE (GLUCOTROL XL) 10 mg Extended Release 24 hour tabletIndications: Type 2 diabetes mellitus without complication, with long-term current use of insulin (CMS/HCC) TAKE ONE TABLET BY MOUTH EVERY DAY 90 Tablet 1 03/02/20 20 Active clotrimazole-betam ethasone (LOTRISONE) 1-0.05 % LotionIndications: Seborrheic dermatitis Apply to affected area 2 times daily. 30 mL 03/31/19 21 Active carvediloL (COREG) 12.5 mg tablet TAKE ONE TABLET BY MOUTH TWICE DAILY 180 Tablet 1 04/12/19 21 Active chlorthalidone (HYGROTON) 25 mg tablet TAKE ONE TABLET BY MOUTH NEEDED EVERY DAY 90 Tablet 1 04/12/19 21 Active tamsulosin (FLOMAX) 0.4 mg capsuleIndications :Benign prostatic hyperplasia without lower urinary tract symptoms TAKE ONE CAPSULE BY MOUTH EVERY DAY 90 Capsule 1 04/12/19 21 Active cyclobenzaprine (FLEXERIL) 10 mg tabletIndications: Left sided sciatica Take 1 Tablet (10 mg) by mouth 3 times daily as needed for Spasm. 90 Tablet 5 05/17/19 21 Active RABEprazole (ACIPHEX) 20 mg Tablet, Delayed Release (E.C.) TAKE ONE TABLET BY MOUTH EVERY DAY 90 Tablet 1 05/19/19 21 Active Insulin Cooper, Disposable, (BD Ultra-Fine Short Pen Needle) 31 gauge x 5/16 NeedleIndications: Type 2 diabetes mellitus without complication, with long-term current use of insulin (CMS/HCC) by [facility] [place] [facility].(Non-Drug; Combo Route) route 2 times daily before meals. Trueplus 3 Bevel Pen needle 180 Each 1 05/19/19 Active Basaglar KwikPen U-100 Insulin 100 unit/mL (3 mL) pen syringeIndications :Type 2 diabetes mellitus without complication, with long-term current use of insulin (CMS/HCC) inject 20 units SUBCUTANEOUSLY TWICE DAILY 45 mL 1 06/07/19 21 Active lovastatin (MEVACOR) 20 mg tabletIndications: Mixed hyperlipidemia Take 1 Tablet (20 mg) by mouth daily. 90 Tablet 4 07/19/19 Active Active Problems Problem Noted Date Diagnosed Date Normocytic anemia 05/16/2020 Type 2 diabetes mellitus wit hout complication, with long-term current use of insulin 01/21/2020 Seborrheic dermatitis 01/21/2020 Hidradenitis suppurativa 01/21/2020 COPD (chronic obstructive pulmonary disease) 02/2020 Tobacco use 01/21/2020 Atherosclerosis of [place] co ronary artery of [place] heart without angina pectoris 01/21/2020 History of coronary artery bypass graft 01/21/20 Severe obesity (BMI 35.0-39.9) with comorbidity 01/21/2020 ELISABET (generalized anxiety disorder) 01/21/2020 Recurrent major depressive disorder, in full rem ission 01/21/2020 HTN (hypertension), benign 01/21/2020 Mixed hyperlipidemia 01/21/2020 History of colon polyps 01/21/2020 Gastroesophageal reflux disease without esophagi tis 01/21/2020 Benign prostatic hyperplasia without lower urinary tract symptoms 01/21/2020 Family History Medical History Relation Name Comments Diabetes Mother Hypertension Mother Relation Name Status Comments Father Mother Alive Social History Tobacco Use Types Packs/Day Years Used Date Smoking Tobacco: Never Smokeless Tobacco: Current Chew Tobacco Cessation:Ready to Q uit: No; Counseling Given: Yes Alcohol Use Standard Drinks/Week Comments No 0 (1 standard drink = 0.6 oz pur e alcohol) Sex and Gender Information Value Date Recorded Sex Assigned at Not on file Legal Sex Male 6:56 AM WIDTH STRIPPER Gender Identity Not on file Sexual Orientation Not on file Last Filed Vital Signs Vital Sign Reading Time Taken Comments Blood Pressure 120/74 05/16/2020 8:48 AM WIDTH STRIPPER Pulse 92 05/16/2020 8:48 AM WIDTH STRIPPER Temperature 36.4 C (97.6 F) 05/16/2020 8:48 AM WIDTH STRIPPER Respiratory Rate 16 05/16/2020 8:48 AM WIDTH STRIPPER Oxygen Saturation 97% 05/16/2020 8:48 AM WIDTH STRIPPER Inhaled Oxygen Concentration - - Weight 127.9 kg (282 lb) 05/16/2020 8:48 AM WIDTH STRIPPER Height 185.4 cm (6' 1 ) 05/16/2020 8:48 AM WIDTH STRIPPER Body Mass Index 37.21 05/16/2020 8:48 AM WIDTH STRIPPER Plan of Treatment Health Maintenance Due Date Last Done Comments FIT/ DNA Q 3 YEARS (AUTO ORDER) 1985 FIT/FOBT Q 1 YEAR (AUTO ORDER) 1985 FLEX SIG/CT COLONOGRAPHY Q 5 YEARS (AUTO ORDER) 1985 DTAP/TDAP/TD VACCINES (1 - Tdap) 1986 HEPATITIS B VACCINES (1 of 3 - 19+ 3-dose series) 1986 Traditional Medicare (ACO) A nnual Wellness Visit 1986 FIT-DNA Q 3 years 01/18/2012 FIT/FOBT Q 1 year 01/18/2012 Flex Sig/CT Colonography Q 5 years 01/18/2012 ZOSTER VACCINE (1 of 2) 2017 DIABETES ANNUAL FOOT EXAM 09/21/2017 09/21/2016 DIABETES HBA1C Q 6 MONTHS 11/16/2020 05/16/2020, 02/2020 DIABETES ANNUAL RETINAL EXAM 01/07/2021, 01/01/2019, 10/22/1997 DIABETES MICROALBUMIN ANNUAL SCREEN 01/20/2021 01/21/2020, 01/13/2019 LDL CHOLESTEROL ANNUAL 01/20/2021 0, 08/26/2019, 08/26/2019, Additional history exists INFLUENZA VACCINE (#1) 2024 03/31/2020 COLORECTAL CANCER SCREENING (AUTO ORDER) 01/21/2028 01/20/2018 COLORECTAL SCREENING 01/21/2028 01/20/2018 Colorectal Cancer Screening (AUTO ORDER) 01/21/2028 Colorectal Cancer Screening 01/21/2028 Procedures Procedure Name Priority Date/Time Associated Diagnosis Comments HEMOGLOBIN A1C Routine 05/16/2020 9:24 AM WIDTH STRIPPER Type 2 diabetes mellitus without complication, with long-term current use of insulin ([facility]) MICROALBUMIN/CREATIN INE RATIO, RANDOM UR Routine 01/21/2020 12:18 PM WIDTH STRIPPER Type 2 diabetes mellitus without complication, with long-term current use of insulin ([facility]) LIPID PANEL Routine 01/21/2020 12:18 PM WIDTH STRIPPER Type 2 diabetes mellitus without complication, with long-term current use of insulin ([facility]) HM DIABETES EYE EXAM Routine 01/08/2020 ENDOSCOPY, COLON, SCREENING Routine 01/20/2018 from Last 3 Months or Most Recently Relevant to Health Maintenance Results * (ABNORMAL) HEMOGLOBIN A1C (05/16/2020 9:24 AM WIDTH STRIPPER) HEMOGLOBIN A1C 8.9(H) See Comment % 05/17/2020 10:17 AM WIDTH STRIPPER [facility] EST. AVG GLUCOSE, A1C 209 mg/dL 05/17/2020 10:17 AM WIDTH STRIPPER [facility] Blood Collection / Unknown 05/16/2020 9:24 AM WIDTH STRIPPER 05/16/2020 8:26 PM WIDTH STRIPPER Narrative [facility] - 05/17/2020 10:17 AM WIDTH STRIPPER HGB A1C INTERPRETATION NORMAL: <5.7% PRE-DIABETES: 5.7 - 6.4% DIABETES: 6.5% OR GREATER Falsely low A1C measurements can occur when: 1. Anemia and/or hemolytic anemia is present. 2. Hemoglobin variants present. 3. Renal failure. 4. Transfusion of blood product in the last 120 days. We recommend ordering a fructosamine test([id number]) to more accurately assess glycemic status if any of the above conditions are present. Agus Turner MD CHEMISTRY ORDERABLES Radha l Result Performing Organization Address [facility] Co de Phone Number [facility] CLIA# [id number] [address] [place] [address] * MICROALBUMIN/CREATININE RATIO, RANDOM UR (01/21/2020 12:18 PM WIDTH STRIPPER) MICROALBUMIN, URINE <1.2 No Reference Range mg/dL 01/21/2020 9:15 PM [facility] CREATININE, URINE 98.0 40.0 - 278.0 mg/dL 01/21/2020 9:15 PM [facility] Comment:Reference Range vari es with fluid intake and diet. MICROALBUMIN/C REAT RATIO, UR <12.2 <17.0 mg/g 01/21/2020 9:15 PM [facility] Urine URINE SPECIMEN OBTAINED BY CLEAN CATCH PROCEDURE / Unknown Collection / Unknown 01/21/2020 12:18 PM WIDTH STRIPPER 01/21/2020 7:55 PM WIDTH STRIPPER Narrative [facility] - 01/21/2020 9:15 PM WIDTH STRIPPER Condition Microalbumin/Creat ratio Normal Males <17 Normal Females <25 Microalbuminuria Males 17-299 Microalbuminuria Females 25-299 Overt proteinuria >=300 Agus Turner MD URINE ORDERABLES Final Re sult Performing Organization Address [facility]/ZIP Co de Phone Number [facility] CLIA# [id number] [address] [place] [address] * (ABNORMAL) LIPID PANEL (01/21/2020 12:18 PM WIDTH STRIPPER) CHOLESTEROL 228(H) <200 mg/dL 01/21/2020 9:27 PM [facility] TRIGLYCERIDE 452(H) <150 mg/dL 01/21/2020 9:27 PM [facility] HDL 36(L) 40 - 59 mg/dL 01/21/2020 9:27 PM [facility] LDL CALCULATED 01/21/2020 9:27 PM [facility] Comment:Calculated LDL is no t accurate when the Triglyceride value exceeds 400. NON-HDL CHOLESTEROL 192(H) <130 mg/dL 01/21/2020 9:27 PM [facility] Blood Collection / Unknown 01/21/2020 12:18 PM WIDTH STRIPPER 01/21/2020 7:59 PM WIDTH STRIPPER Narrative [facility] - 01/21/2020 9:27 PM WIDTH STRIPPER TOTAL CHOLESTEROL mg/dL Desirable <200 Borderline high 200-239 High >=240 TRIGLYCERIDES mg/dL Normal <150 Borderline high 150-199 High 200-499 Very high >=500 HDL CHOLESTEROL mg/dL Low <40 Normal 40-59 Desirable >=60 NON HDL CHOLESTEROL mg/dL Optimal <130 Near Optimal 130-159 Borderline High 160-189 Very High >=190 CALCULATED LDL mg/dL LDL <70, OPTIMAL if have Atherosclerotic cardiovascular disease (ASCVD) or intermediate or higher (>7.5%) 10 year risk of ASCVD including most adults with diabetes. LDL <100, Optimal in adult patients with low (<7.5%) 10 year ASCVD risk LDL 100-160, Suboptimal LDL >160, High LDL >190, Very high ATPIII Guidelines Reference Ranges for Lipid Panels (NCEP/AMA) . Agus Turner MD CHEMISTRY ORDERABLES Radha trevor Result [facility] CLIA# [id number] [address] [place] [address] * DIABETES EYE EXAM (01/08/2020) us Abstract Sp Provider HEALTH MAINTENANCE Final R esult * ENDOSCOPY, COLON, SCREENING (01/20/2018) us Abstract Spg Provider GI PROCEDURE ORDERABLES Fi nal Result from Last 3 Months or Most Recently Relevant to Health Maintenance Insurance [facility] [place] [place] [id number] [facility] MEDICARE PART A AND B Care Teams Medical Imaging Tech Relationship Specialty Start Date End Date Agus Turner MD [address] [address] [place] [id number] PCP - General Family Practice 01/21/20
--- OUTSIDE RECORDS SUMMARY | 2025-02-15 17:30 | XMS_ITS | Patient Health Record ---
Author Organization [facility] Address [address] [place] [address] Care Team Providers Care Able Bodied Tankerman Name Role Phone Shikha Garcia Primary Care Provider Unavailabl e KATIE ALMEIDA Unavailable [phone] Allergies Allergen (clinical drug ingredient) Drug/Non Drug Allergy documented on EMR Reaction Allergy Type Onset Date Status clopidogrel Plavix hives Drug Allergy Activ e Reason For Referral Reason ED Diagnosis 1 Erectile dysfunction , unspecified erectile dysfunction type (N52.9) Referring Provider First Name Shikha Referring Provider Last Name Jose Referred Organization [facility] Referred Provider KATIE ALMEIDA Referred Address [address] [place] [address],[place],[address], Referred Provider Specialty General prac titioner General Notes Jyotsna Moore 08:59:53 AM >LVM for pt to schedule with Teresa Almeida Jessica 03/18/2024 03:04:06 PM >patient scheduled for 03/30/2024 Referral Priority Routine Reason BPH w/ nocturia Diagnosis 1 Erectile dysfunction due to arterial insufficiency (N52.01) Diagnosis 2 Enlarged prostate wi th lower urinary tract symptoms (N40.1) Referral Organization [facility] Referring Provider First Name KATIE Referring Provider Last Name JUAN PABLO Referring Provider Speciality Other Spec ialties Referred Provider KATIE COSTELLO Referred Provider Specialty Urology General Notes Camilla Junior 03/12 03:41:56 PM >Faxed referral to Urology. Referral Priority Routine Medications Medication SIG (Take, Route, Frequency, Duration) Notes Start Date End Date Status Ozempic (1 MG/DOSE) 4 MG/3ML as directed [...] Active Flomax 0.4 MG 1 capsule Orally Once a day 03/30/19 Active Social History Tobacco Control (Standard) Question Answer Notes Additional Findings: Tobacco user Chews tobacco Problems Problem Type SNOMED Code ICD Code Onset Dates Problem Status W/U Status Risk Notes Problem Lower urinary tract symptoms due to benign prostatic hypertrophy (42660603554801) Enlarged prostate with lower urinary tract symptoms (N40.1) Active confirmed Problem Erectile dysfunction co-occurrent and due to arterial insufficiency (disorder) (779778478920800) Erectile dysfunction due to arterial insufficiency (N52.01) Active confirmed Problem Erectile dysfunction (disorder) (757380698) Erectile dysfunction, unspecified erectile dysfunction type (N52.9) Active confirmed Vital Signs Heart Rate 108 /min 03/30/2024 Oximetry 98 % 03/30/2024 Blood pressure diastolic 76 mm Hg 03/30/2024 Height 70 in 03/30/2024 Blood pressure systolic 138 mm Hg 03/30/2024 Weight 258.6 lbs 03/30/2024 BMI 37.1 kg/m2 03/30/2024 Encounters Encounter Location Date Provider Diagnosis [facility] [place] [address] 03/30/2024 KATIE ALMEIDA Erectile dysfunction due to arterial insufficiency N52.01 ; Enlarged prostate with lower urinary tract symptoms N40.1 and Nocturia R35.[address] [facility] [address] [place] [address], [place] [address] 07/27/2024 KATIE ALMEIDA Assessments Encounter Date Diagnosis (ICD Code) Assessment Notes Treatment Notes Treatment Clinical Notes Section Notes 03/30/2024 Enlarged prostate with lower urinary tract [...] the PDE 5 inhibitors that he see credit representative prior to starting any of those [...] he is satisfied with this plan. 03/30/2024 Erectile dysfunction due to arterial insufficiency [...] the PDE 5 inhibitors that he see credit representative prior to starting any of those [...] the PDE 5 inhibitors that he see credit representative prior to starting any of those [...] satisfied with this plan. Plan Of Treatment No Information Insurance Providers Payer Name Payer Address Payer Phone Subscriber Number Group Number Insured Name Patient Relationship to Insured Coverage Start Date Coverage End Date [facility] [address] [address] [place] [address] [id number] Noble Dumont Self - patient is the insured Medical (General) History Medical History History ICD Code Hypertension Type 2 Diabetes Erectile Dysfunction Surgical History Surgery Date(Month/Year) Cholecystectomy Maker Bypass Left Knee Replacement Carpel Tunnel, Bilateral L3-L4 Vertebral Repair
--- OUTSIDE RECORDS SUMMARY | 2025-02-15 17:30 | XMS_ITS | Clinical Summary ---
Author Organization [facility] Address [address] Christensen: Epic Prelude ADT [place] [address] Care Team Providers Care Child And Family Therapist Name Role Phone Agus Turner MD Primary Care Provider [phone] Allergies Active Allergy Reactions Criticality Noted Date Comments Clopidogrel Hives High 01/21/2020 Medications clotrimazole-betam ethasone (LOTRISONE) 1-0.05 % LotionIndications: Seborrheic dermatitis Apply to affected area 2 times daily. 30 mL 0 03/31/19 21 Active diazePAM (VALIUM) 10 mg tabletIndications: ELISABET (generalized anxiety disorder) Take 10 mg by mouth 2 times daily as needed. Pain clinic 01/21/20 Active cyproheptadine (PERIACTIN) 4 mg tabletIndications: Gastroesophageal reflux disease without esophagitis Take 4 mg by mouth 1 time daily as needed for Allergies. 01/21/20 20 Active QUEtiapine (SEROquel) 50 mg tabletIndications: ELISABET (generalized anxiety disorder),Recurren t major depressive disorder, in full remission Take 25 mg by mouth late in the day. [facility] [place] 01/21/20 20 Active ipratropium-albute roL (DUONEB) 0.5 mg-3 mg(2.5 mg base)/3 mL Solution for NebulizationIndica tions:Chronic obstructive pulmonary disease, unspecified COPD type (CMS/HCC) Take 3 mL by inhalation every 4 hours as needed for Shortness of Breath. 01/21/20 20 Active nitroglycerin (NITROSTAT) 0.4 mg Tablet, SublingualIndicati ons:Atherosclerosi s of [place] coronary artery of [place] heart without angina pectoris Place 0.4 mg under tongue every 5 minutes as needed for Chest Pain. 01/21/20 20 Active cholecalciferol, Vitamin D3, (VITAMIN D3) 25 mcg (1,000 unit) Capsule Take by mouth daily. Active aspirin (LUIS) 325 mg tablet Take 325 mg by mouth daily. Active ketoconazole (NIZORAL) 2 % ShampooIndications :Seborrheic dermatitis Apply 10 mL to wet scalp/etienne, lather, leave on 3 minutes, and rinse; apply twice weekly for 4 weeks 120 mL 2 10/22/19 21 Active glipiZIDE (GLUCOTROL XL) 10 mg Extended Release 24 hour tabletIndications: Type 2 diabetes mellitus with hyperglycemia, with long-term current use of insulin ([facility]) Take 1 Tablet (10 mg) by mouth 2 times daily with meals. 180 Tablet 4 03/19/19 22 Active fluticasone propionate (FLONASE) 50 mcg/spray Mobile, Suspension nasal inhaler Administer 2 Sprays in each nostril daily. 16 Gram 3 05/10/19 22 Active venlafaxine (EFFEXOR XR) 150 mg Extended Release 24 hour capsule TAKE ONE CAPSULE BY MOUTH EVERY MORNING 06/09/19 22 Active traMADoL (ULTRAM) 50 mg tabletIndications: Chronic bilateral low back pain with bilateral sciatica Take 1 Tablet (50 mg) by mouth every 8 hours as needed for Pain. 21 Tablet 08/11/19 22 Active naloxone (NARCAN) 4 mg/spray Mobile, Non-Aerosol EMERGENCY USE ONLY: Administer 1 spray (4 mg) in one nostril one time. May repeat in alternating nostrils every 2-3 min until responsive or EMS arrives. 2 Each 3 08/11/19 22 Active gemfibroziL (LOPID) 600 mg tabletIndications: Mixed hyperlipidemia TAKE ONE TABLET BY MOUTH TWICE DAILY *replaces fenofibrate* 60 Tablet 5 09/23/19 22 Active insulin glargine (Basaglar KwikPen U-100 Insulin) 100 unit/mL pen syringeIndications :Type 2 diabetes mellitus with hyperglycemia, with long-term current use of insulin ([facility]) Inject 80 Units by subcutaneous injection daily with breakfast. 24 mL 11/11/19 22 Active Insulin [place], Disposable, 31 gauge x 5/16 NeedleIndications: Type 2 diabetes mellitus with hyperglycemia, with long-term current use of insulin ([facility]) by [facility].(Non-Drug; Combo Route) route daily. 90 Each 11/11/19 Active icosapent ethyL (VASCEPA) 1 gram CapsuleIndications :Mixed hyperlipidemia Take 2 Capsules (2 Grams) by mouth 2 times daily with meals. 120 Capsule 11/11/19 Active chlorthalidone (HYGROTON) 25 mg tabletIndications: HTN (hypertension), benign Take 1 Tablet (25 mg) by mouth daily. 90 Tablet 11/11/19 Active carvediloL (COREG) 12.5 mg tabletIndications: Atherosclerosis of [place] coronary artery of [place] heart with stable angina pectoris,HTN (hypertension), benign Take 1 Tablet (12.5 mg) by mouth 2 times daily with meals. 180 Tablet 11/11/19 Active cyclobenzaprine (FLEXERIL) 10 mg tabletIndications: Chronic bilateral low back pain with bilateral sciatica Take 1 Tablet (10 mg) by mouth 3 times daily as needed for Spasm or Pain. 90 Tablet 11/11/19 Active lisinopriL (PRINIVIL) 10 mg tabletIndications: Type 2 diabetes mellitus with hyperglycemia, with long-term current use of insulin ([facility]),HTN (hypertension), benign Take 1 Tablet (10 mg) by mouth daily. 90 Tablet 11/11/19 Active metFORMIN (GLUCOPHAGE XR) 500 mg Extended Release 24 hour tabletIndications: Type 2 diabetes mellitus with hyperglycemia, with long-term current use of insulin ([facility]) Take 2 Tablets (1,000 mg) by mouth 2 times daily with meals. 360 Tablet 11/11/19 Active tamsulosin (FLOMAX) 0.4 mg capsuleIndications :Benign prostatic hyperplasia without lower urinary tract symptoms Take 1 Capsule (0.4 mg) by mouth daily. 90 Capsule 11/11/19 Active amLODIPine (NORVASC) 2.5 mg tablet Take 2.5 mg by mouth daily. 09/22/19 17 Active cholecalciferol, Vitamin D3, (VITAMIN D3) 25 mcg (1,000 unit) Capsule Take by mouth daily. 09/22/19 17 Active tadalafil (CIALIS) 5 mg tablet TAKE ONE TABLET BY MOUTH DAILY 30 Tablet 04/30/19 23 Active dapagliflozin (Farxiga) 5 mg TabletIndications: Type 2 diabetes mellitus with hyperglycemia, with long-term current use of insulin ([facility]) TAKE ONE TABLET BY MOUTH DAILY 30 Tablet 04/30/19 23 Active RABEprazole (ACIPHEX) 20 mg Tablet, Delayed Release (E.C.) TAKE ONE TABLET BY MOUTH DAILY 90 Tablet 09/17/19 23 Active rosuvastatin (CRESTOR) 40 mg tabletIndications: Type 2 diabetes mellitus with hyperglycemia, with long-term current use of insulin ([facility]),Mixed hyperlipidemia TAKE ONE TABLET BY MOUTH EVERY DAY 15 Tablet 09/18/19 23 Active amLODIPine (NORVASC) 2.5 mg tablet take one tablet by mouth every day 7 Tablet 01/03/20 23 Active Active Problems Problem Noted Date Diagnosed Date Chronic bilateral low back pain with bilateral s ciatica 08/10/2021 Normocytic anemia 05/16/2020 Type 2 diabetes mellitus wit h hyperglycemia, with long-term current use of insulin 01/21/2020 COPD (chronic obstructive pulmonary disease) 02/2020 Seborrheic dermatitis 01/21/2020 Atherosclerosis of [place] co ronary artery of [place] heart with stable angina pectoris 01/21/2020 Severe obesity (BMI 35.0-39.9) with comorbidity 01/21/2020 Recurrent major depressive disorder, in full rem ission 01/21/2020 HTN (hypertension), benign 01/21/2020 History of colon polyps 01/21/2020 Benign prostatic hyperplasia without lower urinary tract symptoms 01/21/2020 Hidradenitis suppurativa 01/21/2020 Tobacco use 01/21/2020 History of coronary artery bypass graft 01/21/20 20 ELISABET (generalized anxiety disorder) 01/21/2020 Mixed hyperlipidemia 01/21/2020 Gastroesophageal reflux disease without esophagi tis 01/21/2020 Immunizations Immunization Administration Dates Next Due (SPIKEVAX) (12 YRS UP PRIMAR Y SERIES) COVID-19 VACCINE - MRNA-1273(PF) 100 MCG/0.5 ML IM SUSP 10/26/2020,09/24/2020 Family History Medical History Relation Name Comments [...] at Not on file 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 Gender Identity Not on file Sexual Orientation Not on file Last Filed Vital Signs Vital Sign Reading Time Taken Comments Blood Pressure 118/70 11/10/2021 9:06 AM CDT Pulse 88 11/10/2021 9:06 AM CDT Temperature 36.7 C (98 F) 11/10/2021 9:06 AM CDT Respiratory Rate 16 11/10/2021 9:06 AM CDT Oxygen Saturation 98% 11/10/2021 9:06 AM CDT Inhaled Oxygen Concentration - - Weight 128.4 kg (283 lb) 11/10/2021 9:06 AM CDT Height 185.4 cm (6' 1 ) 11/10/2021 9:06 AM CDT Body Mass Index 37.34 11/10/2021 9:06 AM CDT Plan of Treatment Health Maintenance Due Date Last Done Comments FIT/ DNA Q 3 YEARS (AUTO ORDER) 1985 FIT/FOBT Q 1 YEAR (AUTO ORDER) 1985 FLEX SIG/CT COLONOGRAPHY Q 5 YEARS (AUTO ORDER) 1985 DTAP/TDAP/TD VACCINES (1 - Tdap) 1986 HEPATITIS B VACCINES (1 of 3 - 19+ 3-dose series) 1986 FIT-DNA Q 3 years 01/18/2012 FIT/FOBT Q 1 year 01/18/2012 Flex Sig/CT Colonography Q 5 years 01/18/2012 ZOSTER VACCINE (1 of 2) 2017 DIABETES ANNUAL FOOT EXAM 09/21/2017 09/21/2016 DIABETES HBA1C Q 6 MONTHS 04/28/20222021, 08/10/2021, 03/09/2021, Additional history exists DIABETES ANNUAL RETINAL EXAM 05/09/202203/2021, 01/11/2021, 01/11/2021, Additional history exists DIABETES MICROALBUMIN ANNUAL SCREEN 05/09/2022 05/09/2021, 01/21/2020, 01/13/2019 LDL CHOLESTEROL ANNUAL 08/10/2022 2, 05/09/2021, 05/09/2021, Additional history exists [place] Preventative Visit/Annual Wellness Visit 03/11/2024 INFLUENZA VACCINE (#1) 2024 12/26/2020, 2020 COVID-19 Vaccine (2024-2 6 season) 2024 10/26/2020, 09/24/2020 COLORECTAL CANCER SCREENING (AUTO ORDER) 01/21/2028 01/20/2018, 01/20/2018 COLORECTAL SCREENING 01/21/2028 01/20/2018, 01/21/20 Colorectal Cancer Screening (AUTO ORDER) 01/21/2028 Colorectal Cancer Screening 01/21/2028 Procedures Procedure Name Priority Date/Time Associated Diagnosis Comments LIPID PANEL Routine 08/10/2021 8:46 AM CDT Type 2 diabetes mellitus with hyperglycemia, with long-term current use of insulin ([facility]) Mixed hyperlipidemia HEMOGLOBIN A1C Routine 08/10/2021 8:46 AM CDT Type 2 diabetes mellitus with hyperglycemia, with long-term current use of insulin ([facility]) MICROALBUMIN/CREATI NINE RATIO, RANDOM UR Routine 05/09/2021 9:44 AM SOLDER MAKING SUPERVISOR Type 2 diabetes mellitus with hyperglycemia, with long-term current use of insulin ([facility]) DIABETES EYE EXAM 01/08/2020 12:00 AM CDT ENDOSCOPY, COLON, SCREENING 01/20/2018 12:00 AM SOLDER MAKING SUPERVISOR from Last 3 Months or Most Recently Relevant to Health Maintenance Results * (ABNORMAL) HEMOGLOBIN A1C (08/10/2021 8:46 AM CDT) HEMOGLOBIN A1C 11.0(H) <5.7 % of total Hgb [facility] Comment: For someone without known diabetes, a hemoglobin A1c value of 6.5% or greater indicates that they may have diabetes and this should be confirmed with a follow-up test. For someone with known diabetes, a value <7% indicates that their diabetes is well controlled and a value greater than or equal to 7% indicates suboptimal control. A1c targets should be individualized based on duration of diabetes, age, comorbid conditions, and other considerations. Currently, no consensus exists regarding use of hemoglobin A1c for diagnosis of diabetes for children. ESTIMATED AVERAGE GLUCOSE (MG/DL) 269 mg/dL [facility] ESTIMATED AVERAGE GLUCOSE (MMOL/L) 14.9 mmol/L [facility] Comment: Test Performed at: [facility] [address] [facility] [place] [address] Vito Smith D.O., MPH Blood 08/10/2021 8:46 AM CDT 08/11/2021 3:43 AM CDT Agus Turner MD CHEMISTRY ORDERABLES Radha murray Result [facility] [phone] * (ABNORMAL) LIPID PANEL (08/10/2021 8:46 AM CDT) CHOLESTEROL 230(H) <200 mg/dL [facility] HDL 29(L) > OR = 40 mg/dL [facility] TRIGLYCERIDE 1,235(H) <150 mg/dL [facility] Comment: Verified by repeat analysis. If a non-fasting specimen was collected, consider repeat triglyceride testing on a fasting specimen if clinically indicated. Geovanni et al. J. of Clin. Lipidol. 2015;9:129-169. There is increased risk of pancreatitis when the triglyceride concentration is very high (> or = 500 mg/dL, especially if > or = 1000 mg/dL). Galarza et al. J. of Clin. Lipidol. 2015;9:129-169. LDL CALCULATED mg/dL (calc) [facility] Comment: LDL cholesterol not calculated. Triglyceride levels greater than 400 mg/dL invalidate calculated LDL results. Reference range: <100 Desirable range <100 mg/dL for primary prevention; <70 mg/dL for patients with CHD or diabetic patients with > or = 2 CHD risk factors. LDL-C is now calculated using the Prashant calculation, which is a validated novel method providing better accuracy than the Friedewald equation in the estimation of LDL-C. Bj ALAN et al. ROLF. 2013;310(19): 5065-9329 (http://education.Anadys/faq/HXX300) CHOL/HDL RATIO 7.9(H) <5.0 (calc) [facility] TOTAL NON-HDL CHOL(LDL+VLDL) 201(H) <130 mg/dL (calc) [facility] Comment: For patients with diabetes plus 1 major ASCVD risk factor, treating to a non-HDL-C goal of <100 mg/dL (LDL-C of <70 mg/dL) is considered a therapeutic option. Test Performed at: [facility] [address] [place] [address] Vito Smith D.O., MPH Blood 08/10/2021 8:46 AM CDT 08/11/2021 3:43 AM CDT Agus Turner MD CHEMISTRY ORDERABLES Radha l Result Performing Organization Address City/[facility]/ZIP Co de Phone Number [facility] [phone] * MICROALBUMIN/CREATININE RATIO, RANDOM UR (05/09/2021 9:44 AM SOLDER MAKING SUPERVISOR) Creatinine, Urine 219 20 - 320 mg/dL [facility] MICROALBUMIN, URINE 2.2 See Note: mg/dL [facility] Comment: Reference Range: Reference Range Not established MICROALBUMIN/CREAT RATIO, UR 10 <30 mcg/mg creat [facility] Comment: The ADA defines abnormalities in albumin excretion as follows: Albuminuria Category Result (mcg/mg creatinine) Normal to Mildly increased <30 Moderately increased 30-299 Severely increased > OR = 300 The ADA recommends that at least two of three specimens collected within a 3-6 month period be abnormal before considering a patient to be within a diagnostic category. Test Performed at: [facility] [address] [place] [address] Vito Smith D.O., MPH Urine URINE SPECIMEN OBTAINED BY CLEAN CATCH PROCEDURE / Unknown 05/09/2021 9:44 AM SOLDER MAKING SUPERVISOR 05/10/2021 3:17 AM SOLDER MAKING SUPERVISOR Agus Turner MD URINE ORDERABLES Final Re sult [facility] [address] [place] [address] * DIABETES EYE EXAM (01/08/2020 12:00 AM CDT) us Sgf Scanning HEALTH MAINTENANCE Final Result * ENDOSCOPY, COLON, SCREENING (01/20/2018 12:00 AM SOLDER MAKING SUPERVISOR) us Sgf Scanning GI PROCEDURE ORDERABLES Final Re sult from Last 3 Months or Most Recently Relevant to Health Maintenance Insurance [id number] Care Teams Child And Family Therapist Relationship Specialty Start Date End Date Agus Turner MD [address] [address] PCP - General Family Practice 01/21/20
--- OUTSIDE RECORDS SUMMARY | 2025-02-15 17:30 | XMS_ITS | Encounter Summary ---
Author Organization [facility] Address [address] [place] [facility] [place] [address] Care Team Providers Care Ell Teacher Name Role Phone Agus Turner MD Primary Care Provider [phone] Encounter Details Date Type Department Care Team (Latest Contact Info) Description 10/22/1997 Outpatient Historical [facility] Ophthalmology 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
--- OUTSIDE RECORDS SUMMARY | 2025-02-15 17:30 | XMS_ITS | Encounter Summary ---
Author Organization [facility] Address [address] [place] [facility] [place] [address] Care Team Providers Care Pattern Hand Name Role Phone Agus Turner MD Primary Care Provider [phone] Encounter Details Date Type Department Care Team (Latest Contact Info) Description 11/12/2003 Outpatient Historical [facility] Ophthalmology 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 [facility] [address] [place] [id number] PCP - General Family Practice 01/21/20 documented as of this encounter
--- OUTSIDE RECORDS SUMMARY | 2025-02-15 17:30 | XMS_ITS | Encounter Summary ---
Author Organization [facility] Address [address] [place] [facility] [place] [address] Care Team Providers Care Electronic Bench Technician Name Role Phone Agus Turner MD Primary Care Provider [phone] Encounter Details Date Type Department Care Team (Latest Contact Info) Description 01/29/2006 Outpatient Historical [facility] Ophthalmology 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
--- OUTSIDE RECORDS SUMMARY | 2025-02-15 17:31 | XMS_ITS | Patient Health Record ---
Author Organization [facility] Address [address] [place] [address] Care Team Providers Care Production Operations Engineer Name Role Phone Zenaida Olmedo Primary Care Provider Jose Luis Baez Unavailable [phone] Derrick Seals MD Unavailable Unavailable Allergies Allergen (clinical drug ingredient) Drug/Non Drug Allergy documented on EMR Reaction Allergy Type Onset Date Status Plavix (clopidogrel) Rash Drug Allergy Active Reason For Referral No Information Medications Medication SIG (Take, Route, Frequency, Duration) Notes Start Date End Date Status Methocarbamol 500 MG Tablet TAKE ONE TABLET BY MOUTH THREE TIMES DAILY NEEDED Oral; Duration: 30 Active metFORMIN HCl ER 500 MG Tablet Extended Release 24 Hour TAKE TWO TABLETS BY MOUTH TWICE DAILY Oral; Duration: 90 Active Basaglar KwikPen 100 UNIT/ML Solution Pen-injector INJECT 20 UNITS EVERY MORNING AND INJECT 10 UNITS EVERY EVENING Subcutaneous; Duration: 50 Active diazePAM 10 MG Tablet (Schedule IV Drug) TAKE ONE TABLET BY MOUTH THREE TIMES DAILY Oral; Duration: 30 Active 24 HR venlafaxine 75 MG Extended Release Capsule 24 HR venlafaxine 75 MG Extended Release Capsule 11/07/2018 Active Carvedilol 12.5 MG Tablet TAKE ONE TABLET BY MOUTH TWICE DAILY Oral; Duration: 90 Active Nitroglycerin 0.4 MG Tablet Sublingual Sublingual Nitroglycerin 0.4 MG Sublingual Tablet 09/25/2018 Active Cyproheptadine HCl 4 MG Tablet TAKE ONE TABLET BY MOUTH AT BEDTIME Oral; Duration: 30 Active Tamsulosin HCl 0.4 MG Capsule TAKE ONE CAPSULE BY MOUTH EVERY DAY Oral; Duration: 90 Active Venlafaxine HCl ER 150 MG Capsule Extended Release 24 Hour TAKE ONE CAPSULE BY MOUTH EVERY DAY WITH FOOD Oral; Duration: 90 Active Clotrimazole-Betameth asone 1-0.05 % Cream APPLY TO THE AFFECTED AREA(S) TWICE DAILY FOR 30 DAYS External; Duration: 30 Active amLODIPine Besylate 2.5 MG Tablet TAKE ONE TABLET BY MOUTH EVERY DAY Oral; Duration: 90 Active RABEprazole Sodium 20 MG Tablet Delayed Release TAKE ONE TABLET BY MOUTH EVERY DAY Oral; Duration: 90 Active Fenofibrate 145 MG Tablet TAKE ONE TABLET BY MOUTH EVERY DAY with food Oral; Duration: 78 Active carvedilol 6.25 MG Oral Tablet carvedilol 6.25 MG Oral Tablet 08/28/2016 Unknown Chlorthalidone 25 MG Tablet TAKE ONE TABLET BY MOUTH NEEDED EVERY DAY Oral; Duration: 90 Active Ipratropium-Albuterol 0.5-2.5 (3) MG/3ML Solution 3 ml as needed Inhalation every 4 hours; Duration: 30 days Unknown glipiZIDE ER 10 MG Tablet Extended Release 24 Hour TAKE ONE TABLET BY MOUTH EVERY DAY Oral; Duration: 90 Active Ipratropium Camas 0.02 % Solution 2.5 ml Inhalation every 8 hrs; Duration: 30 days Unknown Rosuvastatin Calcium 20 MG Tablet TAKE ONE TABLET BY MOUTH AT BEDTIME Oral; Duration: 90 Active traMADol HCl 50 MG Tablet 1 tablet as needed Orally qid; Duration: 30 days for pain 11/30/2020 Active Ipratropium-Albuterol 0.5-2.5 (3) MG/3ML Solution 3 ml as needed Inhalation every 6 hrs; Duration: 90 days 05/11/2020 Active Immunizations Vaccine Route Administration Date Status Comme nts COVID-19 Vaccine (Moderna) Dose #1 Unknown 09/28/2020 A dministered COVID-19 Vaccine (Moderna) Dose #2 Unknown 10/26/2020 A dministered Influenza, seasonal, injecta ble, preservative free, 3 yrs and above Unknown 05/12/2019 Refused Influenza, seasonal, injecta ble, preservative free, 3 yrs and above Unknown 05/11/2020 Refused Pneumococcal polysaccharide PPV23 Unknown 09/01/2016 Ad ministered Social History Tobacco Use: Social History Observation Description Date Details (start date - stop date) Former Smoker NA - NA Social History Tobacco Use: Social Info Question Answer Notes xTobacco Use/Smoking Are you a former smoker How long has it been since you last smoked? > 10 years Additional Findings: Tobacco User Chews tobacco Additional Findings: Tobacco Non-User Ex-very he sunshine cigarette smoker (40+/day) Additional Details Category Social Info Options Details Migrated Social History Migrated Social History Alcoholic beverages? - Yes, Currently on disability? - No, Drug or substance abuse? - No, If yes, frequency of alcoholic beverages - Less than 1 drink per week., Marital Status - , Nonprescription drug use? - No, Smoking - No, Smoking status (MU) - Never smoker, Working currently? - Yes zzMigrated Social History Migrated Social History Smoking Status:Ex-smoker (finding) Tobacco Use: (Tobacco Use/Smoking):Are you a:: former smoker , Additional Findings: Tobacco User: Chews tobacco ; Problems Problem Type SNOMED Code ICD Code Onset Dates Problem Status W/U Status Risk Notes Problem Lumbosacral spondylosis without myelopathy (59960050) Other spondylosis with radiculopathy, lumbar region (M47.26) Active confirmed Problem Low back pain (201625041) Low back pain (M54.5) Active confirmed Problem Hypersomnia (03565891) Hypersomnia (G47.10) Active confirmed Problem Obstructive sleep apnea (92525285) Obstructive sleep apnea (G47.33) Active confirmed Problem Obesity (471259819) Obesity (BMI 30-39.9) (E66.9) Active confirmed Problem Sciatica (27541459) Acute left-sided low back pain with left-sided sciatica (M54.42) Active confirmed Problem Skin sensation disturbance (87991079) Right arm numbness (R20.2) Active confirmed Problem Continuous positive airway pressure ventilation treatment (89267209) CPAP (continuous positive airway pressure) dependence (Z99.89) Active confirmed Problem COPD - Chronic obstructive pulmonary disease (78464261) COPD (chronic obstructive pulmonary disease) (J44.9) Active confirmed Problem Body mass index 40+ - morbidly obese (007343513) BMI 40.0-44.9, adult (Z68.41) Active confirmed Problem Idiopathic peripheral neuropathy (95094495) Idiopathic peripheral neuropathy (G60.9) Active confirmed Problem Low back strain (disorder) (085850745) Strain of lumbar region, initial encounter (S39.012A) Active confirmed Problem Morbid obesity (477177564) Morbid obesity (E66.01) Active confirmed Problem Lumbar radiculopathy (575130980) Lumbar radiculopathy, chronic (M54.16) Active confirmed Problem Tobacco user (230726491) 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) Active confirmed Problem Chronic obstructive pulmonary disease (27257152) Stage 2 moderate COPD by GOLD classification (J44.9) Active confirmed Problem Obese class II (694071479310465 ) BMI 38.0-38.9,adult (Z68.38) Active confirmed Problem Post-laminectomy syndrome (33816070) Postlaminectomy syndrome (M96.1) Active confirmed Problem Displacement of lumbar intervertebral disc (4941342849) Displacement of lumbar intervertebral disc (M51.26) Active confirmed Problem Radiculopathy due to lumbar intervertebral disc disorder (225142086660565 ) Displacement of lumbar intervertebral disc with radiculopathy (M51.16) Active confirmed Problem Shortness of breath (949093405) Shortness of breath (R06.02) Active confirmed [id number] Problem Chest pain (82572258) Chest pain, unspecified (R07.9) Active confirmed [id number] nomed Description:C hest pain Problem Type II diabetes mellitus without complication (505905813) Type 2 diabetes mellitus without complications (E11.9) Active confirmed [id number] nomed Description:T ype 2 diabetes mellitus Problem Essential hypertension (91334541) Essential primary hypertension (I10) Active confirmed [id number] nomed Description:E ssential hypertension Plan Of Treatment Pending Test Test Name Order Date Sleep study > 3 [id number] 08/13/2022 Sleep Study with [id number] 08/13/2022 Schedule Confirmation 10/16/2022 Schedule Confirmation 10/29/2022 Schedule Confirmation 11/07/2022 Schedule Confirmation 11/07/2022 Schedule Confirmation 11/13/2022 Insurance Providers Payer Name Payer Address Payer Phone Subscriber Number Group Number Insured Name Patient Relationship to Insured Coverage Start Date Coverage End Date [facility] Medicare Advantage PPO [address] [address] [place] [address] [id number] Noble Monroe Self - patient is the insured Medical (General) History Medical History History ICD Code Angina (disorder) : Active Anxiety (finding) : Active Arthritis (disorder) : Active Atherosclerosis of coronary artery (diso rder) : Active Chest discomfort (finding) : Active Chews tobacco (finding) : Active Chronic obstructive lung disease (disord er) : Active Coronary arteriosclerosis (disorder) : A ctive Depressive disorder (disorder) : Active Diabetes mellitus (disorder) : Active Difficulty sleeping (finding) : Active Dyslipidemia (disorder) : Active Dyspnea (finding) : Active Fatigue (finding) : Active Fibromyositis (disorder) : Active Gastroesophageal reflux disease (disorde r) : Active Heartburn (finding) : Active History of - coronary artery bypass grafting (context-dependent category) : Active History of tobacco use (situation) : Act michael Hypertensive disorder, systemic arterial (disorder) : Active Impotence of organic origin (disorder) : Active Lightheadedness (finding) : Active Morbid obesity (disorder) : Active Muscle pain (finding) : Active Muscle weakness (finding) : Active Obstructive sleep apnea syndrome (disord er) : Active Primary fibromyalgia syndrome (disorder) : Active Tobacco user (finding) : Active Anxiety (finding) : Active Arthritis (disorder) : Active Chronic depression (disorder) : Active Diabetes mellitus (disorder) : Active Fibromyalgia (disorder) : Active Gastroesophageal reflux disease (disorde r) : Active Heart disease (disorder) : Active Hyperlipidemia (disorder) : Active Hypertensive disorder, systemic arterial (disorder) : Active Sleep apnea (finding) : Active Steatosis of liver (disorder) : Active Surgical History Surgery Date(Month/Year) coronary artery bypass graft tonsillectomy left knee replacement umbilical hernia repair PFT 08/15/2018 PFT 11/11/2020 vasectomy lumbar fusion 06/10/2020 vein graft to the LAD with his coronary bypass graft Gallbladder surgery Hospitalization History Reason Date(Month/Year) denies recent Hospitalized for 10 days 2020 see surgeries
--- OUTSIDE RECORDS SUMMARY | 2025-02-15 17:31 | XMS_ITS | Patient Health Record ---
Author Organization [facility], [facility] Address [address] [place] [address] Care Team Providers Care Commutator Tester Name Role Phone Shikha Garcia Primary Care Provider UnavailFrancisco Lai Unavailable [phone] FRANCISCO COSTELLO Unavailable [phone] FREDIS GORMAN Unavailable [phone] KATERINA CHOI Unavailable [phone] Allergies Allergen (clinical drug ingredient) Drug/Non Drug Allergy documented on EMR Reaction Allergy Type Onset Date Status clopidogrel Plavix Unknown Drug Allergy Activ e Results Component Value Reference Range Notes Urinalysis, Routine Reviewed date:04/08/2024 08:33:25 AM Interpretation: Performing Lab: Notes/Report: Urine-Color yellow Appearance clear Glucose 3+ Bilirubin - Ketones - Specific [place] 1.015 Occult Blood - pH 6.0 Urine Protein - Urobilinogen,Semi-Qn - Nitrite, Urine - WBC Esterase - Urinalysis, Routine Reviewed date:05/27/2024 11:19:33 AM Interpretation: Performing Lab: Notes/Report: Urine-Color yellow Appearance clear Glucose 3+ Bilirubin - Ketones - Specific [place] 1.010 Occult Blood - pH 6.5 Urine Protein - Urobilinogen,Semi-Qn - Nitrite, Urine - WBC Esterase - PSA-Diagnostic Reviewed date:05/27/2024 09:52:44 AM Interpretation: Performing Lab: Notes/Report: PSA 2.83 .00-4.00 NG/ML PSA concentrations, regardless of the value, should not be interpreted as definitive evidence for the presence or absence of prostate cancer. Testing performed at: [address] [address] CLIA ID [id number] Reason For Referral No Information Medications Medication SIG (Take, Route, Frequency, Duration) Notes Start Date End Date Status Tamsulosin HCl 0.4 MG 1 capsule Orally O nce a day; Duration: 90 days 04/08/2024 04/03/2025 Active Tadalafil 5 MG 1 tablet as needed Orally Once a day; Duration: 90 days 05/27/2024 05/22/2025 Active Valium 10 MG 1 tablet as needed Orally Once a day Active Ergocalciferol 50 MCG (2000 UT) 1 capsule Orally Once a day Active Cyproheptadine HCl 4 MG 1 tablet Orally Twice a day Active Farxiga 10 MG 1 tablet Orally Once a day Active metFORMIN HCl 500 MG 1 tablet with a radha l Orally Once a day Active Lisinopril 10 MG 1 tablet Orally Once a day Active Pantoprazole Sodium 40 MG 1 tablet 1/2 t o 1 hour before morning meal Orally Once a day Active Multiple Vitamin - 1 tablet Orally Once a day Active Fenofibrate 160 MG 1 tablet Orally Once a day Active Fluticasone Propionate 50 MCG/ACT 1 spray in each nostril Nasally Twice a day Active HumuLIN R U-500 (CONCENTRATED) 500 UNIT/ML as directed Subcutaneous Active Rosuvastatin Calcium 40 MG 1 tablet Orally Once a day Active amLODIPine Besylate 2.5 MG 1 tablet Orally Once a day Active Effexor XR 150 MG 1 capsule with food Orally Once a day Active Tadalafil 20 MG 1 tablet as needed Orally Once a day Active Aspir-81 Active Otezla 30 MG 1 tablet Orally Twic e a day Active Chlorthalidone 25 MG 1 tablet in the morning with food Orally Active Carvedilol 12.5 MG 1 tablet with food Orally Twice a day Active Cyclobenzaprine HCl 10 MG 1 tablet at be dtime as needed Orally Once a day Active Cholecalciferol 25 MCG (1000 UT) 1 capsule Orally Once a day Active Pregabalin 50 MG 1 capsule Orally Onc e a day Active LORazepam 1 MG 1 tablet at bedtime as needed Orally Once a day Active metFORMIN HCl 1000 MG 1 tablet with a me al Orally Once a day 2x a day Active Corea 3 Active Social History Tobacco Use: Social History Observation Description Date Details (start date - stop date) Former Smoker NA - NA Tobacco Control (Standard) Question Answer Notes Tobacco use: Former smoker AUDIT-C (Standard) Question Answer Notes Did you have a drink contain ing alcohol in the past year? Yes How often did you have a dri nk containing alcohol in the past year? Monthly or less (1 point) How many drinks did you have on a typical day when you were drinking in the past year? 1 or 2 drinks (0 point) How often did you have six o r more drinks on one occasion in the past year? Never (0 point) Points 1 Interpretation Negative Section Notes: former drinker - still has a drink once in a while use snuff a can a day former drinker - still has a drink once in a while use snuff a can a day former drinker - still has a drink once in a while use snuff a can a day Problems Problem Type SNOMED Code ICD Code Onset Dates Problem Status W/U Status Risk Notes Problem Lower urinary tract symptoms due to benign prostatic hypertrophy (78667658801405) Benign localized hyperplasia of prostate with urinary obstruction (N40.1) Active confirmed Problem Urinary hesitancy (8602636) Urinary hesitancy (R39.11) Active confirmed Problem Benign prostatic hyperplasia (369371540) BPH (benign prostatic hyperplasia) (N40.0) Active confirmed Problem Erectile dysfunction (disorder) (133914951) ED (erectile dysfunction) (N52.9) Active confirmed Problem Overactive urinary bladder (disorder) (047456254) OAB (overactive bladder) (N32.81) Active confirmed Vital Signs Heart Rate 99 /min 10/06/2024 Blood pressure diastolic 93 mm Hg 10/06/2024 Height-cm 182.88 cm 10/06/2024 Weight-kg 108.86 kg 10/06/2024 Height 72 in 10/06/2024 Blood pressure systolic 144 mm Hg 10/06/2024 Weight 240 lbs 10/06/2024 BMI 32.55 kg/m2 10/06/2024 Procedures Procedure Date Ordered Date Performed Result Body Sit e Bladder Scan 04/08/2024 N/A UroFlow 10/06/2024 N/A Bladder Scan 10/06/2024 10/06/2024 pvr 20mL Encounters Encounter Location Date Provider Diagnosis [facility] [address] [place] [address] 02/02/2025 Francisco Syed [facility] [address] [place] [address] 04/08/2024 Francisco Syed Benign localized hyperplasia of prostate with urinary obstruction N40.1 ; Lower urinary tract symptoms (LUTS) R39.9 ; Weak urinary stream R39.12 and Nocturia more than twice per night R35.1 [facility] [address] [facility] [place] [address] 05/27/2024 FRANCISCO COSTELLO Benign localized hyperplasia of prostate with urinary obstruction N40.1 ; Weak urinary stream R39.12 and Nocturia more than twice per night R35.1 [facility], [facility] [address] [facility] [place] [address] 10/06/2024 FREDIS GORMAN Benign localized hyperplasia of prostate with urinary obstruction N40.1 ; Urinary hesitancy R39.11 ; OAB (overactive bladder) N32.81 and ED (erectile dysfunction) N52.9 [facility] [employer] [facility], [facility] [address] [place] [address] 04/08/2024 Francisco Syed Prostate cancer screening Z12.5 Assessments Encounter Date Diagnosis (ICD Code) Assessment Notes Treatment Notes Treatment Clinical Notes Section Notes 04/08/2024 Lower urinary tract symptoms (LUTS) (ICD-10 - R39.9) Involving the ED , we discussed continue with cialis 20mg, PRN. Refill as needed. We discussed the concept of maximal medical management of BPH as well as possible treatment with a transurethral procedure. May consider in office cystoscopy in near future. We will start conservatively by starting Flomax for his urinary complaints. Side effects reviewed. Prescription sent to pharmacy. At this time, he is currently not in urinary retention. Vitals are stable. No complaints of pain. Patient is unsure of last PSA. He will gain this prior to next scheduled office visit as he is hopeful to not have further medication and would like to move forward with cystoscopy.. For now, and through shared decision making we are in agreement with no further workup or intervention at this time with care plan, aside from what was mentioned. Patient has no other voiced concerns or questions. Patient satisfied with plan. 04/08/2024 Prostate cancer screening (ICD-10 - Z12.5) 05/27/2024 Benign localized hyperplasia of prostate with urinary obstruction (ICD-10 - N40.1) He has a 3.5 cm prostate fossa with obstruction and would benefit from a transurethral procedure but we will attempt medications first with only a marginal response to Flomax however over the last 4 to 6 weeks. He also has bother with the ED and marginal response to Cialis so we discussed low intensity SWT as an option. First however we will start with daily low-dose Cialis for urinary symptoms. Side effects reviewed. He will return in 2 to 3 months for reassessment of symptoms and noninvasive urodynamics and if still bothersome we will discuss PVP versus Optilume BPH. Discussed PSA concerns for age correction and need for recheck. Following cystoscopy, we have spent over 20 minutes in further consultation and treatment planning with greater than 50% of that time in direct [id number] discussion. 05/27/2024 Weak urinary stream (ICD-10 - R39.12) He has a 3.5 cm prostate fossa with obstruction and would benefit from a transurethral procedure but we will attempt medications first with only a marginal response to Flomax however over the last 4 to 6 weeks. He also has bother with the ED and marginal response to Cialis so we discussed low intensity SWT as an option. First however we will start with daily low-dose Cialis for urinary symptoms. Side effects reviewed. He will return in 2 to 3 months for reassessment of symptoms and noninvasive urodynamics and if still bothersome we will discuss PVP versus Optilume BPH. Discussed PSA concerns for age correction and need for recheck. Following cystoscopy, we have spent over 20 minutes in further consultation and treatment planning with greater than 50% of that time in direct [id number] discussion. 10/06/2024 Benign localized hyperplasia of prostate with urinary obstruction (ICD-10 - N40.1) Pt has excellent noninvasive urodynamics with max FR of 26 with good emptying, therefore I feel like his frequency and urgency are more related to his bladder/diabet es than obstruction. He is not interested in OAB treatment at this time. Will continue daily tadalafil and tamsulosin. PSA WNL. Will reassess at his f/u in 3-4m. 10/06/2024 Urinary hesitancy (ICD-10 - R39.11) 04/08/2024 Benign localized hyperplasia of prostate with urinary obstruction (ICD-10 - N40.1) Involving the ED , we discussed continue with cialis 20mg, PRN. Refill as needed. We discussed the concept of maximal medical management of BPH as well as possible treatment with a transurethral procedure. May consider in office cystoscopy in near future. We will start conservatively by starting Flomax for his urinary complaints. Side effects reviewed. Prescription sent to pharmacy. At this time, he is currently not in urinary retention. Vitals are stable. No complaints of pain. Patient is unsure of last PSA. He will gain this prior to next scheduled office visit as he is hopeful to not have further medication and would like to move forward with cystoscopy.. For now, and through shared decision making we are in agreement with no further workup or intervention at this time with care plan, aside from what was mentioned. Patient has no other voiced concerns or questions. Patient satisfied with plan. 04/08/2024 Weak urinary stream (ICD-10 - R39.12) Involving the ED , we discussed continue with cialis 20mg, PRN. Refill as needed. We discussed the concept of maximal medical management of BPH as well as possible treatment with a transurethral procedure. May consider in office cystoscopy in near future. We will start conservatively by starting Flomax for his urinary complaints. Side effects reviewed. Prescription sent to pharmacy. At this time, he is currently not in urinary retention. Vitals are stable. No complaints of pain. Patient is unsure of last PSA. He will gain this prior to next scheduled office visit as he is hopeful to not have further medication and would like to move forward with cystoscopy.. For now, and through shared decision making we are in agreement with no further workup or intervention at this time with care plan, aside from what was mentioned. Patient has no other voiced concerns or questions. Patient satisfied with plan. 10/06/2024 OAB (overactive bladder) (ICD-10 - N32.81) 05/27/2024 Nocturia more than twice per night (ICD-10 - R35.1) He has a 3.5 cm prostate fossa with obstruction and would benefit from a transurethral procedure but we will attempt medications first with only a marginal response to Flomax however over the last 4 to 6 weeks. He also has bother with the ED and marginal response to Cialis so we discussed low intensity SWT as an option. First however we will start with daily low-dose Cialis for urinary symptoms. Side effects reviewed. He will return in 2 to 3 months for reassessment of symptoms and noninvasive urodynamics and if still bothersome we will discuss PVP versus Optilume BPH. Discussed PSA concerns for age correction and need for recheck. Following cystoscopy, we have spent over 20 minutes in further consultation and treatment planning with greater than 50% of that time in direct [id number] discussion. 10/06/2024 ED (erectile dysfunction) (ICD-10 - N52.9) Pt doing well with LUTS on tadalafil, but no erection response. Discussed advanced therapy including Gainswave, ICI, KARLY, IPP. He is interested in ICI. Will order Trimix and have him schedule for injection training. RTC in 3-4m for reassessment. 04/08/2024 Nocturia more than twice per night (ICD-10 - R35.1) Involving the ED , we discussed continue with cialis 20mg, PRN. Refill as needed. We discussed the concept of maximal medical management of BPH as well as possible treatment with a transurethral procedure. May consider in office cystoscopy in near future. We will start conservatively by starting Flomax for his urinary complaints. Side effects reviewed. Prescription sent to pharmacy. At this time, he is currently not in urinary retention. Vitals are stable. No complaints of pain. Patient is unsure of last PSA. He will gain this prior to next scheduled office visit as he is hopeful to not have further medication and would like to move forward with cystoscopy.. For now, and through shared decision making we are in agreement with no further workup or intervention at this time with care plan, aside from what was mentioned. Patient has no other voiced concerns or questions. Patient satisfied with plan. Plan Of Treatment Pending Test Test Name Order Date Bladder Scan 04/08/2024 UroFlow 10/06/2024 PSA-Diagnostic 04/08/2024 PSA-Diagnostic 04/08/2024 Insurance Providers Payer Name Payer Address Payer Phone Subscriber Number Group Number Insured Name Patient Relationship to Insured Coverage Start Date Coverage End Date [facility] Medicare Advantage PPO [address] [address] [place], [place] [phone] [id number] Noble Dumont Self - patient is the insured Medical (General) History Medical History History ICD Code anxiety rheumatoid arthritis depression diabetic back pain difficulty urinating ED unable to make it to the bathroom - inco ntinence waking 3 times a night to urinate high cholesterol HTN COPD OAB urinary frequency urinary urgency take medication to achieve erection weak stream urine starts and stops Surgical History Surgery Date(Month/Year) triple by pass knee replacement carpal tunnel on both hands gallbladder removed back surgery surgery on belly button tonsils Hospitalization History Reason Date(Month/Year) see sx
== END 2025-02-15 16:27 | disposition home or self-care (01) ==
PROVIDERS: Emergency Medicine; Emergency Provider Physician Assistant; PCP Nurse Practitioner Family
DX: R07.9 Chest pain, unspecified (principal); Z79.82 Long term (current) use of aspirin; Z79.84 Long term (current) use of oral hypoglycemic drugs
CPT/HCPCS: 36415; 36416; 71045; 80053; 82962; 83690; 84484; 85025; 93005; 96374; 99285; J1815; J7030